=== PATIENT | female | born 1935 | race Caucasian/White ===

== ENCOUNTER → 2017-07-17 06:55 | Outpatient (REF) | payer MEDICARE, SELFPAY ==
[2017-07-17 10:26] LABS: Anion Gap 7 (5-15); BUN 38 mg/dL (7-18); BUN/Creat Ratio 25.5 RATIO (10-20); Calcium,Total 8.3 mg/dL (8.5-10.1); Chloride 106 mmol/L (98-107); Creatinine, Serum 1.49 mg/dL (0.55-1.02); EST Glomerular Filtration Rate 36 mL/min (>60); Est Glom Filt Rate - Afr Amer 43 mL/min (>60); Glucose 87 mg/dL (70-110); Sodium Level 142 mmol/L (136-145)
[2017-07-17 10:38] LABS: White Blood Count 10.9 K/mm3 (4.4-11.0)
[2017-07-17 10:39] LABS: Hematocrit 34.8 % (37-47); Mean Corp Hgb Conc 31.6 g/gl (32-36); Mean Corpuscular Hgb 31.4 pg (27.0-32.0); Mean Corpuscular Volume 99.4 fL (81-99); Mean Platelet Vol. 11.9 fl (6.2-12.0); Platelet Count 314 K/mm3 (150-450); RBC Distribution Width CV 14.3 % (11.6-14.6); RBC Distribution Width SD 50.5 fl (35.1-43.9); Scan Indicated on CBC? Y/N NO
== END ==
LOC: OLS.WHLEAS 06:55
PROVIDERS: Visit Provider Family Medicine
DX: J44.9 Chronic obstructive pulmonary disease, unspecified (principal); E78.5 Hyperlipidemia, unspecified; E03.9 Hypothyroidism, unspecified
CPT/HCPCS: 36415; 80048; 85027

== ENCOUNTER → 2017-09-05 06:40 | Outpatient (REF) | payer MEDICARE, SELFPAY ==
[2017-09-05 09:00] LABS: Hematocrit 35.5 % (37-47); Hemoglobin 10.9 g/dl (12.0-15.0); Mean Corp Hgb Conc 30.7 g/gl (32-36); Mean Corpuscular Hgb 30.6 pg (27.0-32.0); Mean Corpuscular Volume 99.7 fL (81-99); Mean Platelet Vol. 11.2 fl (6.2-12.0); Platelet Count 325 K/mm3 (150-450); RBC Distribution Width CV 14.2 % (11.6-14.6); RBC Distribution Width SD 51.5 fl (35.1-43.9); Red Blood Count 3.56 M/mm3 (4.2-5.4); White Blood Count 11.2 K/mm3 (4.4-11.0)
[2017-09-05 09:04] LABS: Scan Indicated on CBC? Y/N NO
[2017-09-05 09:24] LABS: Anion Gap 8 (5-15); BUN 29 mg/dL (7-18); Calcium,Total 8.3 mg/dL (8.5-10.1); Chloride 103 mmol/L (98-107); Creatinine, Serum 1.32 mg/dL (0.55-1.02); EST Glomerular Filtration Rate 41 mL/min (>60); Est Glom Filt Rate - Afr Amer 50 mL/min (>60); Glucose 79 mg/dL (70-110); Sodium Level 140 mmol/L (136-145)
== END ==
LOC: OLS.WHLEAS 06:40
PROVIDERS: Visit Provider Family Medicine
DX: F03.90 Unspecified dementia, unspecified severity, without behavioral disturbance, psychotic disturbance, mood disturbance, and anxiety (principal); I12.9 Hypertensive chronic kidney disease with stage 1 through stage 4 chronic kidney disease, or unspecified chronic kidney disease; N18.2 Chronic kidney disease, stage 2 (mild); E78.5 Hyperlipidemia, unspecified; E03.9 Hypothyroidism, unspecified
CPT/HCPCS: 36415; 80048; 84443; 85027

== ENCOUNTER → 2017-11-02 06:55 | Outpatient (REF) | payer MEDICARE, SELFPAY ==
[2017-11-02 08:57] LABS: Hematocrit 35.4 % (37-47); Hemoglobin 11.1 g/dl (12.0-15.0); Mean Corp Hgb Conc 31.4 g/gl (32-36); Mean Corpuscular Hgb 31.5 pg (27.0-32.0); Mean Corpuscular Volume 100.6 fL (81-99); Mean Platelet Vol. 11.6 fl (6.2-12.0); Platelet Count 294 K/mm3 (150-450); RBC Distribution Width CV 14.6 % (11.6-14.6); RBC Distribution Width SD 52.5 fl (35.1-43.9); Red Blood Count 3.52 M/mm3 (4.2-5.4); White Blood Count 10.8 K/mm3 (4.4-11.0)
[2017-11-02 08:58] LABS: Scan Indicated on CBC? Y/N NO
[2017-11-02 09:13] LABS: Anion Gap 6 (5-15); BUN 26 mg/dL (7-18); BUN/Creat Ratio 19.3 RATIO (10-20); Calcium,Total 8.3 mg/dL (8.5-10.1); Chloride 105 mmol/L (98-107); Creatinine, Serum 1.35 mg/dL (0.55-1.02); EST Glomerular Filtration Rate 40 mL/min (>60); Est Glom Filt Rate - Afr Amer 48 mL/min (>60); Glucose 85 mg/dL (74-106); Potassium 4.6 mmol/L (3.5-5.1); Sodium Level 141 mmol/L (136-145)
== END ==
LOC: OLS.WHLEAS 06:55
PROVIDERS: Visit Provider Family Medicine
DX: I10 Essential (primary) hypertension (principal); E03.9 Hypothyroidism, unspecified; J44.9 Chronic obstructive pulmonary disease, unspecified
CPT/HCPCS: 36415; 80048; 85027

== ENCOUNTER → 2017-11-17 05:00 | Outpatient (REF) | payer MEDICARE, SELFPAY ==
[2017-11-17 09:13] LABS: Hematocrit 36.1 % (37-47); Hemoglobin 11.3 g/dl (12.0-15.0); Mean Corp Hgb Conc 31.3 g/gl (32-36); Mean Corpuscular Hgb 31.7 pg (27.0-32.0); Mean Corpuscular Volume 101.4 fL (81-99); Mean Platelet Vol. 11.4 fl (6.2-12.0); Platelet Count 310 K/mm3 (150-450); RBC Distribution Width CV 14.3 % (11.6-14.6); RBC Distribution Width SD 51.7 fl (35.1-43.9); Red Blood Count 3.56 M/mm3 (4.2-5.4); White Blood Count 10.2 K/mm3 (4.4-11.0)
[2017-11-17 09:14] LABS: Scan Indicated on CBC? Y/N NO
[2017-11-17 09:32] LABS: Anion Gap 6 (5-15); BUN 25 mg/dL (7-18); BUN/Creat Ratio 18.5 RATIO (10-20); Calcium,Total 8.4 mg/dL (8.5-10.1); Chloride 103 mmol/L (98-107); Creatinine, Serum 1.35 mg/dL (0.55-1.02); EST Glomerular Filtration Rate 40 mL/min (>60); Est Glom Filt Rate - Afr Amer 48 mL/min (>60); Glucose 82 mg/dL (74-106); Potassium 4.2 mmol/L (3.5-5.1); Sodium Level 140 mmol/L (136-145)
== END ==
LOC: OLS.WHLEAS 05:00
PROVIDERS: Visit Provider Family Medicine
DX: I10 Essential (primary) hypertension (principal); E78.5 Hyperlipidemia, unspecified; E03.9 Hypothyroidism, unspecified; J44.9 Chronic obstructive pulmonary disease, unspecified
CPT/HCPCS: 36415; 80048; 85027

== ENCOUNTER → 2017-12-13 05:00 | Outpatient (REF) | payer MEDICARE, SELFPAY ==
[2017-12-13 08:44] LABS: Anion Gap 5 (5-15); BUN 27 mg/dL (7-18); BUN/Creat Ratio 20.6 RATIO (10-20); Calcium,Total 8.4 mg/dL (8.5-10.1); Chloride 109 mmol/L (98-107); Creatinine, Serum 1.31 mg/dL (0.55-1.02); EST Glomerular Filtration Rate 41 mL/min (>60); Est Glom Filt Rate - Afr Amer 50 mL/min (>60); Glucose 88 mg/dL (74-106); Potassium 4.6 mmol/L (3.5-5.1); Sodium Level 144 mmol/L (136-145)
[2017-12-13 09:09] LABS: Absolute Lymphocyte Count 3.61 X10^3/ul (0.83-4.51); Absolute Neutrophil Count 4.9 X10^3/uL (2.0-7.7); Basophil# 0.03 X10^3/uL; Basophil% 0.3 % (0-1); Eosinophils% 7.3 % (0-5); Lymphocyte # 3.61 X10^3/ul (4.0); Lymphocyte % 32.9 % (19-41); Mean Corp Hgb Conc 30.6 g/gl (32-36); Mean Corpuscular Hgb 31.4 pg (27.0-32.0); Mean Corpuscular Volume 102.9 fL (81-99); Mean Platelet Vol. 11.8 fl (6.2-12.0); Monocyte# 1.56 X10^3/uL; Monocyte% 14.2 % (0-10); Neutrophil # 4.94 X10^3/uL (2.7-7.7); Neutrophil % 45.1 % (47-70); Platelet Count 284 K/mm3 (150-450); RBC Distribution Width CV 14.8 % (11.6-14.6); RBC Distribution Width SD 54.8 fl (35.1-43.9)
[2017-12-13 09:25] LABS: Differential Indicated SCAN CRITERIA MET; POSITIVE COUNT NO; POSITIVE DIFFERENTIAL YES; POSITIVE MORPHOLOGY NO
== END ==
LOC: OLS.WHLEAS 05:00
PROVIDERS: Visit Provider Family Medicine
DX: I10 Essential (primary) hypertension (principal); E78.5 Hyperlipidemia, unspecified; E03.9 Hypothyroidism, unspecified; F41.9 Anxiety disorder, unspecified; F33.9 Major depressive disorder, recurrent, unspecified; M62.81 Muscle weakness (generalized)
CPT/HCPCS: 36415; 80048; 85025

== ENCOUNTER → 2018-01-15 06:30 | Outpatient (REF) | payer MEDICARE, SELFPAY ==
[2018-01-18 17:00] LABS: White Blood Count 9.9 K/mm3 (4.4-11.0)
[2018-01-18 17:01] LABS: BUN 24 mg/dL (7-18); Creatinine, Serum 1.26 mg/dL (0.55-1.02); EST Glomerular Filtration Rate 43 mL/min (>60); Est Glom Filt Rate - Afr Amer 52 mL/min (>60); Glucose 80 mg/dL (74-106); Hematocrit 37.1 % (37-47); Hemoglobin 11.5 g/dl (12.0-15.0); Mean Corpuscular Hgb 31.4 pg (27.0-32.0); Mean Corpuscular Volume 101.4 fL (81-99); Platelet Count 282 K/mm3 (150-450); RBC Distribution Width CV 13.7 % (11.6-14.6); RBC Distribution Width SD 50.3 fl (35.1-43.9); Red Blood Count 3.66 M/mm3 (4.2-5.4); Scan Indicated on CBC? Y/N NO
[2018-01-18 17:02] LABS: Anion Gap 7 (5-15); Calcium,Total 8.4 mg/dL (8.5-10.1); Chloride 109 mmol/L (98-107); Sodium Level 145 mmol/L (136-145)
== END ==
LOC: OLS.WHLEAS 06:30
PROVIDERS: Visit Provider Family Medicine
DX: I12.9 Hypertensive chronic kidney disease with stage 1 through stage 4 chronic kidney disease, or unspecified chronic kidney disease (principal); N18.2 Chronic kidney disease, stage 2 (mild); E78.5 Hyperlipidemia, unspecified; E03.9 Hypothyroidism, unspecified
CPT/HCPCS: 36415; 80048; 85027

== ENCOUNTER → 2018-02-19 05:00 | Outpatient (REF) | payer MEDICARE, SELFPAY ==
[2018-02-19 09:45] LABS: Absolute Lymphocyte Count 3.48 X10^3/ul (0.83-4.51); Absolute Neutrophil Count 9.1 X10^3/uL (2.0-7.7); Basophil# 0.08 X10^3/uL; Basophil% 0.5 % (0-1); Eosinophil# 0.75 X10^3/uL; Eosinophils% 4.8 % (0-5); Hematocrit 33.6 % (37-47); Hemoglobin 10.7 g/dl (12.0-15.0); Lymphocyte # 3.48 X10^3/ul (4.0); Lymphocyte % 22.1 % (19-41); Mean Corp Hgb Conc 31.8 g/gl (32-36); Mean Corpuscular Volume 97.4 fL (81-99); Mean Platelet Vol. 11.6 fl (6.2-12.0); Neutrophil # 9.13 X10^3/uL (2.7-7.7); Neutrophil % 57.8 % (47-70); Platelet Count 335 K/mm3 (150-450); RBC Distribution Width SD 48.5 fl (35.1-43.9); Red Blood Count 3.45 M/mm3 (4.2-5.4); White Blood Count 15.8 K/mm3 (4.4-11.0)
[2018-02-19 09:47] LABS: POSITIVE COUNT NO; POSITIVE DIFFERENTIAL YES; POSITIVE MORPHOLOGY YES
[2018-02-19 09:48] LABS: Differential Indicated SCAN CRITERIA MET
[2018-02-19 10:03] LABS: Anion Gap 8 (5-15); BUN 18 mg/dL (7-18); BUN/Creat Ratio 13.2 RATIO (10-20); Calcium,Total 8.6 mg/dL (8.5-10.1); Chloride 102 mmol/L (98-107); Creatinine, Serum 1.36 mg/dL (0.55-1.02); EST Glomerular Filtration Rate 40 mL/min (>60); Est Glom Filt Rate - Afr Amer 48 mL/min (>60); Glucose 87 mg/dL (74-106); Sodium Level 142 mmol/L (136-145); Thyroid Stim Hormone (TSH) 1.86 uIU/mL (0.358-3.74)
[2018-02-20 16:08] LABS: Pathologist Review Reviewed
== END ==
LOC: OLS.WHLEAS 05:00
PROVIDERS: Visit Provider Family Medicine
DX: I10 Essential (primary) hypertension (principal); E11.9 Type 2 diabetes mellitus without complications; J44.9 Chronic obstructive pulmonary disease, unspecified; E78.5 Hyperlipidemia, unspecified; E03.9 Hypothyroidism, unspecified; Z79.01 Long term (current) use of anticoagulants
CPT/HCPCS: 36415; 80048; 84443; 85025

== ENCOUNTER → 2018-02-20 05:00 | Outpatient (REF) | payer MEDICARE, SELFPAY ==
[2018-02-20 08:54] LABS: Absolute Lymphocyte Count 3.34 X10^3/ul (0.83-4.51); Absolute Neutrophil Count 7.9 X10^3/uL (2.0-7.7); Basophil# 0.07 X10^3/uL; Basophil% 0.5 % (0-1); Eosinophil# 1.11 X10^3/uL; Eosinophils% 7.5 % (0-5); Hematocrit 33.7 % (37-47); Hemoglobin 10.8 g/dl (12.0-15.0); Lymphocyte # 3.34 X10^3/ul (4.0); Lymphocyte % 22.5 % (19-41); Mean Corpuscular Hgb 31.6 pg (27.0-32.0); Mean Corpuscular Volume 98.5 fL (81-99); Mean Platelet Vol. 11.3 fl (6.2-12.0); Monocyte# 2.24 X10^3/uL; Monocyte% 15.1 % (0-10); Neutrophil # 7.91 X10^3/uL (2.7-7.7); Neutrophil % 53.1 % (47-70); Platelet Count 359 K/mm3 (150-450); RBC Distribution Width CV 14.3 % (11.6-14.6); RBC Distribution Width SD 49.3 fl (35.1-43.9); Red Blood Count 3.42 M/mm3 (4.2-5.4); White Blood Count 14.9 K/mm3 (4.4-11.0)
[2018-02-20 08:57] LABS: Differential Indicated SCAN CRITERIA MET; POSITIVE COUNT NO; POSITIVE DIFFERENTIAL YES; POSITIVE MORPHOLOGY YES
[2018-02-20 09:21] LABS: Platelet Estimate ADEQUATE (ADEQ)
[2018-02-20 09:22] LABS: Hypochromasia 1+; Polychromasia RARE; Target Cells RARE
== END ==
LOC: OLS.WHLEAS 05:00
PROVIDERS: Visit Provider Family Medicine
DX: J40 Bronchitis, not specified as acute or chronic (principal); D72.829 Elevated white blood cell count, unspecified
CPT/HCPCS: 36415; 85025

== ENCOUNTER → 2018-02-26 05:00 | Outpatient (REF) | payer MEDICARE, SELFPAY ==
[2018-02-26 09:24] LABS: Absolute Lymphocyte Count 2.88 X10^3/ul (0.83-4.51); Absolute Neutrophil Count 4.5 X10^3/uL (2.0-7.7); Basophil# 0.04 X10^3/uL; Basophil% 0.4 % (0-1); Eosinophil# 0.75 X10^3/uL; Eosinophils% 8.3 % (0-5); Hematocrit 34.5 % (37-47); Lymphocyte # 2.88 X10^3/ul (4.0); Lymphocyte % 31.8 % (19-41); Mean Corp Hgb Conc 31.9 g/gl (32-36); Mean Corpuscular Hgb 31.3 pg (27.0-32.0); Mean Platelet Vol. 10.9 fl (6.2-12.0); Monocyte# 0.91 X10^3/uL; Neutrophil # 4.46 X10^3/uL (2.7-7.7); Neutrophil % 49.3 % (47-70); Platelet Count 465 K/mm3 (150-450); RBC Distribution Width CV 14.1 % (11.6-14.6); RBC Distribution Width SD 48.1 fl (35.1-43.9); Red Blood Count 3.52 M/mm3 (4.2-5.4); White Blood Count 9.1 K/mm3 (4.4-11.0)
[2018-02-26 09:38] LABS: POSITIVE COUNT NO; POSITIVE DIFFERENTIAL NO; POSITIVE MORPHOLOGY NO
== END ==
LOC: OLS.WHLEAS 05:00
PROVIDERS: Visit Provider Family Medicine
DX: J40 Bronchitis, not specified as acute or chronic (principal); D72.829 Elevated white blood cell count, unspecified; R53.83 Other fatigue
CPT/HCPCS: 36415; 85025

== ENCOUNTER → 2018-03-15 05:00 | Outpatient (REF) | payer MEDICARE, SELFPAY ==
[2018-03-15 08:15] LABS: Hematocrit 33.8 % (37-47); Hemoglobin 10.8 g/dl (12.0-15.0); Mean Corpuscular Hgb 31.8 pg (27.0-32.0); Mean Corpuscular Volume 99.4 fL (81-99); Mean Platelet Vol. 11.5 fl (6.2-12.0); Platelet Count 274 K/mm3 (150-450); RBC Distribution Width CV 14.5 % (11.6-14.6); RBC Distribution Width SD 51.2 fl (35.1-43.9); White Blood Count 13.5 K/mm3 (4.4-11.0)
[2018-03-15 08:18] LABS: Anion Gap 8 (5-15); BUN 15 mg/dL (7-18); Calcium,Total 8.4 mg/dL (8.5-10.1); Chloride 103 mmol/L (98-107); Creatinine, Serum 1.36 mg/dL (0.55-1.02); EST Glomerular Filtration Rate 40 mL/min (>60); Est Glom Filt Rate - Afr Amer 48 mL/min (>60); Glucose 88 mg/dL (74-106); Potassium 3.4 mmol/L (3.5-5.1); Sodium Level 143 mmol/L (136-145)
[2018-03-15 08:33] LABS: Scan Indicated on CBC? Y/N NO
== END ==
LOC: OLS.WHLEAS 05:00
PROVIDERS: Visit Provider Family Medicine
DX: I10 Essential (primary) hypertension (principal); E03.9 Hypothyroidism, unspecified; J44.9 Chronic obstructive pulmonary disease, unspecified; F03.90 Unspecified dementia, unspecified severity, without behavioral disturbance, psychotic disturbance, mood disturbance, and anxiety
CPT/HCPCS: 36415; 80048; 85027

== ENCOUNTER → 2018-03-21 08:30 | Outpatient (REF) | payer MEDICARE, SELFPAY | LOC: OLS.WHLEAS 08:30 | PROVIDERS: Visit Provider Family Medicine | DX: J18.9 Pneumonia, unspecified organism (principal) | CPT/HCPCS: 87449 ==

== ENCOUNTER → 2018-04-26 05:00 | Outpatient (REF) | payer MEDICARE, SELFPAY ==
[2018-04-26 10:28] LABS: Hematocrit 35.1 % (37-47); Mean Corp Hgb Conc 31.3 g/gl (32-36); Mean Corpuscular Hgb 31.5 pg (27.0-32.0); Mean Corpuscular Volume 100.6 fL (81-99); Mean Platelet Vol. 11.5 fl (6.2-12.0); Platelet Count 297 K/mm3 (150-450); RBC Distribution Width CV 15.1 % (11.6-14.6); RBC Distribution Width SD 53.5 fl (35.1-43.9); Red Blood Count 3.49 M/mm3 (4.2-5.4); White Blood Count 10.3 K/mm3 (4.4-11.0)
[2018-04-26 10:31] LABS: Scan Indicated on CBC? Y/N NO
[2018-04-26 10:38] LABS: Anion Gap 7 (5-15); BUN 22 mg/dL (7-18); BUN/Creat Ratio 15.3 RATIO (10-20); Calcium,Total 8.4 mg/dL (8.5-10.1); Chloride 105 mmol/L (98-107); Creatinine, Serum 1.44 mg/dL (0.55-1.02); EST Glomerular Filtration Rate 37 mL/min (>60); Est Glom Filt Rate - Afr Amer 45 mL/min (>60); Glucose 89 mg/dL (74-106); Potassium 4.1 mmol/L (3.5-5.1); Sodium Level 143 mmol/L (136-145)
== END ==
LOC: OLS.WHLEAS 05:00
PROVIDERS: Visit Provider Family Medicine
DX: J44.9 Chronic obstructive pulmonary disease, unspecified (principal); I10 Essential (primary) hypertension
CPT/HCPCS: 36415; 80048; 85027

== ENCOUNTER → 2018-05-16 05:00 | Outpatient (REF) | payer MEDICARE, SELFPAY ==
[2018-05-16 07:29] LABS: Hematocrit 33.7 % (37-47); Hemoglobin 10.8 g/dl (12.0-15.0); Mean Corpuscular Hgb 32.4 pg (27.0-32.0); Mean Corpuscular Volume 101.2 fL (81-99); Mean Platelet Vol. 11.6 fl (6.2-12.0); Platelet Count 287 K/mm3 (150-450); RBC Distribution Width CV 14.5 % (11.6-14.6); RBC Distribution Width SD 52.4 fl (35.1-43.9); Red Blood Count 3.33 M/mm3 (4.2-5.4); White Blood Count 10.9 K/mm3 (4.4-11.0)
[2018-05-16 07:30] LABS: Scan Indicated on CBC? Y/N NO
[2018-05-16 07:44] LABS: Anion Gap 6 (5-15); BUN 19 mg/dL (7-18); Calcium,Total 8.5 mg/dL (8.5-10.1); Chloride 106 mmol/L (98-107); Creatinine, Serum 1.36 mg/dL (0.55-1.02); EST Glomerular Filtration Rate 40 mL/min (>60); Est Glom Filt Rate - Afr Amer 48 mL/min (>60); Glucose 83 mg/dL (74-106); Sodium Level 144 mmol/L (136-145)
== END ==
LOC: OLS.WHLEAS 05:00
PROVIDERS: Visit Provider Family Medicine
DX: E03.9 Hypothyroidism, unspecified (principal); J44.9 Chronic obstructive pulmonary disease, unspecified
CPT/HCPCS: 36415; 80048; 85027

== ENCOUNTER → 2018-06-19 05:00 | Outpatient (REF) | payer MEDICARE, SELFPAY ==
[2018-06-19 08:49] LABS: Hematocrit 36.9 % (37-47); Hemoglobin 11.3 g/dl (12.0-15.0); Mean Corp Hgb Conc 30.6 g/gl (32-36); Mean Corpuscular Hgb 30.5 pg (27.0-32.0); Mean Corpuscular Volume 99.7 fL (81-99); Mean Platelet Vol. 11.3 fl (6.2-12.0); Platelet Count 334 K/mm3 (150-450); RBC Distribution Width SD 50.9 fl (35.1-43.9); White Blood Count 11.3 K/mm3 (4.4-11.0)
[2018-06-19 08:52] LABS: Scan Indicated on CBC? Y/N NO
[2018-06-19 09:09] LABS: Anion Gap 8 (5-15); BUN 24 mg/dL (7-18); BUN/Creat Ratio 16.8 RATIO (10-20); Calcium,Total 8.4 mg/dL (8.5-10.1); Chloride 108 mmol/L (98-107); Creatinine, Serum 1.43 mg/dL (0.55-1.02); EST Glomerular Filtration Rate 37 mL/min (>60); Est Glom Filt Rate - Afr Amer 45 mL/min (>60); Glucose 84 mg/dL (74-106); Potassium 3.9 mmol/L (3.5-5.1); Sodium Level 144 mmol/L (136-145)
== END ==
LOC: OLS.WHLEAS 05:00
PROVIDERS: Visit Provider Family Medicine
DX: I10 Essential (primary) hypertension (principal); E78.5 Hyperlipidemia, unspecified; E03.9 Hypothyroidism, unspecified; F03.90 Unspecified dementia, unspecified severity, without behavioral disturbance, psychotic disturbance, mood disturbance, and anxiety
CPT/HCPCS: 36415; 80048; 85027

== ENCOUNTER → 2018-07-19 06:05 | Outpatient (REF) | payer MEDICARE, SELFPAY ==
[2018-07-19 08:59] LABS: Hematocrit 35.1 % (37-47); Hemoglobin 11.1 g/dl (12.0-15.0); Mean Corp Hgb Conc 31.6 g/gl (32-36); Mean Corpuscular Hgb 31.7 pg (27.0-32.0); Mean Corpuscular Volume 100.3 fL (81-99); Mean Platelet Vol. 11.6 fl (6.2-12.0); Platelet Count 303 K/mm3 (150-450); RBC Distribution Width SD 49.5 fl (35.1-43.9); White Blood Count 13.1 K/mm3 (4.4-11.0)
[2018-07-19 09:03] LABS: Scan Indicated on CBC? Y/N NO
[2018-07-19 09:04] LABS: Anion Gap 7 (5-15); BUN 25 mg/dL (7-18); BUN/Creat Ratio 17.6 RATIO (10-20); Calcium,Total 8.2 mg/dL (8.5-10.1); Chloride 106 mmol/L (98-107); Creatinine, Serum 1.42 mg/dL (0.55-1.02); EST Glomerular Filtration Rate 38 mL/min (>60); Est Glom Filt Rate - Afr Amer 46 mL/min (>60); Glucose 84 mg/dL (74-106); Potassium 3.8 mmol/L (3.5-5.1); Sodium Level 144 mmol/L (136-145)
== END ==
LOC: OLS.WHLEAS 06:05
PROVIDERS: Visit Provider Family Medicine
DX: I10 Essential (primary) hypertension (principal); E03.9 Hypothyroidism, unspecified; F33.9 Major depressive disorder, recurrent, unspecified; F03.90 Unspecified dementia, unspecified severity, without behavioral disturbance, psychotic disturbance, mood disturbance, and anxiety
CPT/HCPCS: 36415; 80048; 85027

== ENCOUNTER → 2018-08-21 05:00 | Outpatient (REF) | payer MEDICARE, SELFPAY ==
[2018-08-21 08:30] LABS: Hematocrit 35.4 % (37-47); Hemoglobin 10.8 g/dl (12.0-15.0); Mean Corp Hgb Conc 30.5 g/gl (32-36); Mean Corpuscular Hgb 30.6 pg (27.0-32.0); Mean Corpuscular Volume 100.3 fL (81-99); Mean Platelet Vol. 11.2 fl (6.2-12.0); Platelet Count 306 K/mm3 (150-450); RBC Distribution Width CV 14.4 % (11.6-14.6); RBC Distribution Width SD 52.6 fl (35.1-43.9); Red Blood Count 3.53 M/mm3 (4.2-5.4); White Blood Count 8.5 K/mm3 (4.4-11.0)
[2018-08-21 08:32] LABS: Scan Indicated on CBC? Y/N NO
[2018-08-21 08:42] LABS: Anion Gap 9 (5-15); BUN 21 mg/dL (7-18); BUN/Creat Ratio 14.8 RATIO (10-20); Calcium,Total 8.4 mg/dL (8.5-10.1); Chloride 106 mmol/L (98-107); Creatinine, Serum 1.42 mg/dL (0.55-1.02); EST Glomerular Filtration Rate 38 mL/min (>60); Est Glom Filt Rate - Afr Amer 46 mL/min (>60); Glucose 83 mg/dL (74-106); Potassium 3.9 mmol/L (3.5-5.1); Sodium Level 144 mmol/L (136-145); Thyroid Stim Hormone (TSH) 2.17 uIU/mL (0.358-3.74)
== END ==
LOC: OLS.WHLEAS 05:00
PROVIDERS: Visit Provider Family Medicine
DX: F03.90 Unspecified dementia, unspecified severity, without behavioral disturbance, psychotic disturbance, mood disturbance, and anxiety (principal); I10 Essential (primary) hypertension; E03.9 Hypothyroidism, unspecified; F33.9 Major depressive disorder, recurrent, unspecified
CPT/HCPCS: 36415; 80048; 84443; 85027

== ENCOUNTER → 2018-09-20 05:36 | Outpatient (REF) | payer MEDICARE, SELFPAY ==
[2018-09-20 07:26] LABS: Anion Gap 9 (5-15); BUN 23 mg/dL (7-18); Calcium,Total 8.3 mg/dL (8.5-10.1); Chloride 107 mmol/L (98-107); Creatinine, Serum 1.35 mg/dL (0.55-1.02); EST Glomerular Filtration Rate 40 mL/min (>60); Est Glom Filt Rate - Afr Amer 48 mL/min (>60); Glucose 84 mg/dL (74-106); Potassium 3.7 mmol/L (3.5-5.1); Sodium Level 143 mmol/L (136-145)
[2018-09-20 07:32] LABS: Hematocrit 34.7 % (37-47); Hemoglobin 10.7 g/dl (12.0-15.0); Mean Corp Hgb Conc 30.8 g/gl (32-36); Mean Corpuscular Hgb 30.8 pg (27.0-32.0); Mean Platelet Vol. 10.9 fl (6.2-12.0); Platelet Count 328 K/mm3 (150-450); RBC Distribution Width CV 14.1 % (11.6-14.6); RBC Distribution Width SD 51.1 fl (35.1-43.9); Red Blood Count 3.47 M/mm3 (4.2-5.4); White Blood Count 13.1 K/mm3 (4.4-11.0)
[2018-09-20 07:41] LABS: Scan Indicated on CBC? Y/N NO
== END ==
LOC: OLS.WHLEAS 05:36
PROVIDERS: Visit Provider Family Medicine
DX: I10 Essential (primary) hypertension (principal); F03.90 Unspecified dementia, unspecified severity, without behavioral disturbance, psychotic disturbance, mood disturbance, and anxiety; E03.9 Hypothyroidism, unspecified; F33.9 Major depressive disorder, recurrent, unspecified
CPT/HCPCS: 36415; 80048; 85027

== ENCOUNTER → 2018-10-18 06:15 | Outpatient (REF) | payer MEDICARE, SELFPAY ==
[2018-10-18 08:39] LABS: Hematocrit 36.2 % (37-47); Mean Corp Hgb Conc 30.4 g/gl (32-36); Mean Corpuscular Hgb 30.8 pg (27.0-32.0); Mean Corpuscular Volume 101.4 fL (81-99); Mean Platelet Vol. 11.9 fl (6.2-12.0); Platelet Count 271 K/mm3 (150-450); RBC Distribution Width CV 14.1 % (11.6-14.6); Red Blood Count 3.57 M/mm3 (4.2-5.4); White Blood Count 6.8 K/mm3 (4.4-11.0)
[2018-10-18 08:42] LABS: Scan Indicated on CBC? Y/N NO
[2018-10-18 09:08] LABS: Anion Gap 6 (5-15); BUN 27 mg/dL (7-18); BUN/Creat Ratio 19.6 RATIO (10-20); Calcium,Total 7.8 mg/dL (8.5-10.1); Chloride 106 mmol/L (98-107); Creatinine, Serum 1.38 mg/dL (0.55-1.02); EST Glomerular Filtration Rate 39 mL/min (>60); Est Glom Filt Rate - Afr Amer 47 mL/min (>60); Glucose 82 mg/dL (74-106); Sodium Level 141 mmol/L (136-145)
== END ==
LOC: OLS.WHLEAS 06:15
PROVIDERS: Visit Provider Family Medicine
DX: E11.9 Type 2 diabetes mellitus without complications (principal); J44.9 Chronic obstructive pulmonary disease, unspecified; F03.90 Unspecified dementia, unspecified severity, without behavioral disturbance, psychotic disturbance, mood disturbance, and anxiety; I10 Essential (primary) hypertension
CPT/HCPCS: 36415; 80048; 85027

== ENCOUNTER → 2018-11-22 05:00 | Outpatient (REF) | payer MEDICARE, SELFPAY ==
[2018-11-22 08:32] LABS: Hematocrit 35.5 % (37-47); Hemoglobin 11.2 g/dl (12.0-15.0); Mean Corp Hgb Conc 31.5 g/gl (32-36); Mean Corpuscular Hgb 30.8 pg (27.0-32.0); Mean Corpuscular Volume 97.5 fL (81-99); Mean Platelet Vol. 11.3 fl (6.2-12.0); Platelet Count 319 K/mm3 (150-450); RBC Distribution Width SD 50.2 fl (35.1-43.9); Red Blood Count 3.64 M/mm3 (4.2-5.4); White Blood Count 11.4 K/mm3 (4.4-11.0)
[2018-11-22 08:44] LABS: Anion Gap 7 (5-15); BUN 24 mg/dL (7-18); BUN/Creat Ratio 17.1 RATIO (10-20); Calcium,Total 8.1 mg/dL (8.5-10.1); Chloride 106 mmol/L (98-107); EST Glomerular Filtration Rate 38 mL/min (>60); Est Glom Filt Rate - Afr Amer 46 mL/min (>60); Glucose 85 mg/dL (74-106); Potassium 3.9 mmol/L (3.5-5.1); Scan Indicated on CBC? Y/N NO; Sodium Level 140 mmol/L (136-145)
== END ==
LOC: OLS.WHLEAS 05:00
PROVIDERS: Visit Provider Family Medicine
DX: J44.9 Chronic obstructive pulmonary disease, unspecified (principal); E03.9 Hypothyroidism, unspecified
CPT/HCPCS: 36415; 80048; 85027

== ENCOUNTER → 2018-12-20 05:00 | Outpatient (REF) | payer MEDICARE, SELFPAY ==
[2018-12-20 07:37] LABS: Hematocrit 35.1 % (37-47); Mean Corp Hgb Conc 31.3 g/gl (32-36); Mean Corpuscular Hgb 30.8 pg (27.0-32.0); Mean Corpuscular Volume 98.3 fL (81-99); Mean Platelet Vol. 11.6 fl (6.2-12.0); Platelet Count 301 K/mm3 (150-450); RBC Distribution Width CV 14.3 % (11.6-14.6); RBC Distribution Width SD 51.3 fl (35.1-43.9); Red Blood Count 3.57 M/mm3 (4.2-5.4); White Blood Count 11.1 K/mm3 (4.4-11.0)
[2018-12-20 07:45] LABS: Scan Indicated on CBC? Y/N NO
[2018-12-20 07:52] LABS: Anion Gap 5 (5-15); BUN 21 mg/dL (7-18); BUN/Creat Ratio 15.9 RATIO (10-20); Calcium,Total 8.1 mg/dL (8.5-10.1); Chloride 108 mmol/L (98-107); Creatinine, Serum 1.32 mg/dL (0.55-1.02); EST Glomerular Filtration Rate 41 mL/min (>60); Est Glom Filt Rate - Afr Amer 50 mL/min (>60); Glucose 84 mg/dL (74-106); Potassium 4.2 mmol/L (3.5-5.1); Sodium Level 141 mmol/L (136-145)
== END ==
LOC: OLS.WHLTCC 05:00
PROVIDERS: Visit Provider Family Medicine
DX: J44.9 Chronic obstructive pulmonary disease, unspecified (principal); I10 Essential (primary) hypertension
CPT/HCPCS: 36415; 80048; 85027

== ENCOUNTER → 2019-01-24 | Outpatient (REF) | payer MEDICARE, SELFPAY ==
[2019-01-24 07:56] LABS: Hematocrit 33.9 % (37-47); Hemoglobin 10.6 g/dl (12.0-15.0); Mean Corp Hgb Conc 31.3 g/gl (32-36); Mean Corpuscular Hgb 30.5 pg (27.0-32.0); Mean Corpuscular Volume 97.4 fL (81-99); Mean Platelet Vol. 12.1 fl (6.2-12.0); Platelet Count 280 K/mm3 (150-450); RBC Distribution Width CV 14.4 % (11.6-14.6); RBC Distribution Width SD 50.9 fl (35.1-43.9); Red Blood Count 3.48 M/mm3 (4.2-5.4); White Blood Count 11.2 K/mm3 (4.4-11.0)
[2019-01-24 08:04] LABS: Anion Gap 3 (5-15); BUN 25 mg/dL (7-18); BUN/Creat Ratio 17.5 RATIO (10-20); Calcium,Total 8.5 mg/dL (8.5-10.1); Chloride 109 mmol/L (98-107); Creatinine, Serum 1.43 mg/dL (0.55-1.02); EST Glomerular Filtration Rate 37 mL/min (>60); Est Glom Filt Rate - Afr Amer 45 mL/min (>60); Glucose 86 mg/dL (74-106); Potassium 3.9 mmol/L (3.5-5.1); Sodium Level 142 mmol/L (136-145)
[2019-01-24 08:06] LABS: Scan Indicated on CBC? Y/N NO
== END | disposition home or self-care (01) ==
LOC: OLS.WHLEAS 05:35
PROVIDERS: Visit Provider Family Medicine
DX: I10 Essential (primary) hypertension (principal); E03.9 Hypothyroidism, unspecified
CPT/HCPCS: 36415; 80048; 85027

== ENCOUNTER → 2019-02-20 05:00 | Outpatient (REF) | payer MEDICARE, SELFPAY ==
[2019-02-20 07:07] LABS: Hematocrit 35.4 % (37-47); Hemoglobin 11.1 g/dl (12.0-15.0); Mean Corp Hgb Conc 31.4 g/gl (32-36); Mean Corpuscular Hgb 30.4 pg (27.0-32.0); Mean Platelet Vol. 12.1 fl (6.2-12.0); Platelet Count 264 K/mm3 (150-450); RBC Distribution Width CV 14.5 % (11.6-14.6); Red Blood Count 3.65 M/mm3 (4.2-5.4); White Blood Count 10.5 K/mm3 (4.4-11.0)
[2019-02-20 07:12] LABS: Scan Indicated on CBC? Y/N NO
[2019-02-20 08:25] LABS: Anion Gap 7 (5-15); BUN 28 mg/dL (7-18); BUN/Creat Ratio 18.5 RATIO (10-20); Calcium,Total 8.3 mg/dL (8.5-10.1); Chloride 106 mmol/L (98-107); Creatinine, Serum 1.51 mg/dL (0.55-1.02); EST Glomerular Filtration Rate 35 mL/min (>60); Est Glom Filt Rate - Afr Amer 42 mL/min (>60); Glucose 81 mg/dL (74-106); Potassium 3.9 mmol/L (3.5-5.1); Sodium Level 144 mmol/L (136-145); Thyroid Stim Hormone (TSH) 2.23 uIU/mL (0.358-3.74)
== END ==
LOC: OLS.WHLEAS 05:00
PROVIDERS: Visit Provider Family Medicine
DX: I11.0 Hypertensive heart disease with heart failure (principal); I50.9 Heart failure, unspecified; E03.9 Hypothyroidism, unspecified
CPT/HCPCS: 36415; 80048; 84443; 85027

== ENCOUNTER → 2019-03-21 05:00 | Outpatient (REF) | payer MEDICARE, SELFPAY ==
[2019-03-21 07:51] LABS: Hematocrit 34.6 % (37-47); Mean Corp Hgb Conc 31.8 g/dL (32-36); Mean Corpuscular Hgb 31.3 pg (27.0-32.0); Mean Corpuscular Volume 98.6 fL (81-99); Mean Platelet Vol. 11.4 fl (6.2-12.0); Platelet Count 302 K/mm3 (150-450); RBC Distribution Width CV 14.5 % (11.6-14.6); RBC Distribution Width SD 52.6 fl (35.1-43.9); Red Blood Count 3.51 M/mm3 (4.2-5.4); White Blood Count 11.5 K/mm3 (4.4-11.0)
[2019-03-21 08:03] LABS: Anion Gap 5 (5-15); BUN 32 mg/dL (7-18); BUN/Creat Ratio 19.3 RATIO (10-20); Calcium,Total 8.4 mg/dL (8.5-10.1); Chloride 107 mmol/L (98-107); Creatinine, Serum 1.66 mg/dL (0.55-1.02); EST Glomerular Filtration Rate 31 mL/min (>60); Est Glom Filt Rate - Afr Amer 38 mL/min (>60); Glucose 93 mg/dL (74-106); Potassium 3.9 mmol/L (3.5-5.1); Sodium Level 141 mmol/L (136-145)
== END ==
LOC: OLS.WHLEAS 05:00
PROVIDERS: Visit Provider Family Medicine
DX: F01.51 Vascular dementia, unspecified severity, with behavioral disturbance (principal); F81.9 Developmental disorder of scholastic skills, unspecified; R13.12 Dysphagia, oropharyngeal phase; I67.9 Cerebrovascular disease, unspecified; I48.0 Paroxysmal atrial fibrillation; J44.9 Chronic obstructive pulmonary disease, unspecified
CPT/HCPCS: 36415; 80048; 85027

== ENCOUNTER → 2019-04-04 13:30 | Outpatient (REF) | payer MEDICARE, SELFPAY ==
[2019-04-06 08:55] LABS: Color, Urine Yellow (Yellow); Glucose, Dipstick Normal (Normal); Ketone-Dipstick Negative (Negative); Leukocyte Esterase-Dipstick 500 /ul (Negative); Nitrite-Dipstick Positive (Negative); Occult Blood-Urine 10 /ul (Negative); Protein-Dipstick Negative (Negative); Urine Bilirubin Dipstick Negative (Negative); Urine Clarity Sl. Cloudy (Clear); Urine Urobilinogen Normal (Normal)
== END ==
LOC: OLS.WHLEAS 13:30
PROVIDERS: Visit Provider Family Medicine
DX: N39.0 Urinary tract infection, site not specified (principal); F01.51 Vascular dementia, unspecified severity, with behavioral disturbance; F81.9 Developmental disorder of scholastic skills, unspecified; R13.12 Dysphagia, oropharyngeal phase; I67.9 Cerebrovascular disease, unspecified; I48.0 Paroxysmal atrial fibrillation
CPT/HCPCS: 81002; 87077; 87086; 87088; 87186

== ENCOUNTER → 2019-04-25 05:00 | Outpatient (REF) | payer MEDICARE, SELFPAY ==
[2019-04-25 07:48] LABS: Hematocrit 34.5 % (37-47); Mean Corp Hgb Conc 31.9 g/dL (32-36); Mean Corpuscular Hgb 31.4 pg (27.0-32.0); Mean Corpuscular Volume 98.6 fL (81-99); Mean Platelet Vol. 11.9 fl (6.2-12.0); Platelet Count 282 K/mm3 (150-450); RBC Distribution Width CV 13.9 % (11.6-14.6); RBC Distribution Width SD 51.1 fl (35.1-43.9); White Blood Count 11.8 K/mm3 (4.4-11.0)
[2019-04-25 08:17] LABS: Anion Gap 6 (5-15); BUN 26 mg/dL (7-18); BUN/Creat Ratio 18.1 RATIO (10-20); Calcium,Total 8.4 mg/dL (8.5-10.1); Chloride 107 mmol/L (98-107); Creatinine, Serum 1.44 mg/dL (0.55-1.02); EST Glomerular Filtration Rate 37 mL/min (>60); Est Glom Filt Rate - Afr Amer 45 mL/min (>60); Glucose 82 mg/dL (74-106); Potassium 3.6 mmol/L (3.5-5.1); Sodium Level 141 mmol/L (136-145)
== END ==
LOC: OLS.WHLEAS 05:00
PROVIDERS: Visit Provider Family Medicine
DX: F01.51 Vascular dementia, unspecified severity, with behavioral disturbance (principal); F81.9 Developmental disorder of scholastic skills, unspecified; R13.12 Dysphagia, oropharyngeal phase; I48.0 Paroxysmal atrial fibrillation; I67.9 Cerebrovascular disease, unspecified; J44.9 Chronic obstructive pulmonary disease, unspecified
CPT/HCPCS: 36415; 80048; 85027

== ENCOUNTER → 2019-05-23 | Outpatient (REF) | payer MEDICARE, SELFPAY ==
[2019-05-23 07:57] LABS: Hematocrit 34.8 % (37-47); Hemoglobin 11.1 g/dL (12.0-15.0); Mean Corp Hgb Conc 31.9 g/dL (32-36); Mean Corpuscular Hgb 31.4 pg (27.0-32.0); Mean Corpuscular Volume 98.3 fL (81-99); Mean Platelet Vol. 11.5 fl (6.2-12.0); Platelet Count 317 K/mm3 (150-450); RBC Distribution Width CV 13.6 % (11.6-14.6); RBC Distribution Width SD 49.9 fl (35.1-43.9); Red Blood Count 3.54 M/mm3 (4.2-5.4); White Blood Count 10.4 K/mm3 (4.4-11.0)
[2019-05-23 08:18] LABS: Anion Gap 6 (5-15); BUN 26 mg/dL (7-18); BUN/Creat Ratio 19.4 RATIO (10-20); Calcium,Total 8.5 mg/dL (8.5-10.1); Chloride 107 mmol/L (98-107); Creatinine, Serum 1.34 mg/dL (0.55-1.02); EST Glomerular Filtration Rate 40 mL/min (>60); Est Glom Filt Rate - Afr Amer 49 mL/min (>60); Glucose 94 mg/dL (74-106); Potassium 3.8 mmol/L (3.5-5.1); Sodium Level 143 mmol/L (136-145)
== END | disposition home or self-care (01) ==
LOC: OLS.WHLEAS 05:00
PROVIDERS: Visit Provider Family Medicine
DX: J44.9 Chronic obstructive pulmonary disease, unspecified (principal)
CPT/HCPCS: 36415; 80048; 85027

== ENCOUNTER → 2019-06-27 05:00 | Outpatient (REF) | payer MEDICARE, SELFPAY ==
[2019-06-27 08:14] LABS: Hematocrit 35.8 % (37-47); Hemoglobin 11.2 g/dL (12.0-15.0); Mean Corp Hgb Conc 31.3 g/dL (32-36); Mean Corpuscular Hgb 31.4 pg (27.0-32.0); Mean Corpuscular Volume 100.3 fL (81-99); Mean Platelet Vol. 11.8 fl (6.2-12.0); Platelet Count 296 K/mm3 (150-450); RBC Distribution Width CV 14.4 % (11.6-14.6); RBC Distribution Width SD 53.6 fl (35.1-43.9); Red Blood Count 3.57 M/mm3 (4.2-5.4); White Blood Count 11.1 K/mm3 (4.4-11.0)
[2019-06-27 08:35] LABS: Anion Gap 5 (5-15); BUN 28 mg/dL (7-18); BUN/Creat Ratio 20.7 RATIO (10-20); Calcium,Total 8.4 mg/dL (8.5-10.1); Chloride 106 mmol/L (98-107); Creatinine, Serum 1.35 mg/dL (0.55-1.02); EST Glomerular Filtration Rate 40 mL/min (>60); Est Glom Filt Rate - Afr Amer 48 mL/min (>60); Glucose 95 mg/dL (74-106); Potassium 4.1 mmol/L (3.5-5.1); Sodium Level 140 mmol/L (136-145)
== END ==
LOC: OLS.WHLEAS 05:00
PROVIDERS: Visit Provider Family Medicine
DX: F01.51 Vascular dementia, unspecified severity, with behavioral disturbance (principal); F81.9 Developmental disorder of scholastic skills, unspecified; R13.12 Dysphagia, oropharyngeal phase; I67.9 Cerebrovascular disease, unspecified; I48.0 Paroxysmal atrial fibrillation; J44.9 Chronic obstructive pulmonary disease, unspecified
CPT/HCPCS: 36415; 80048; 85027

== ENCOUNTER → 2019-07-25 05:00 | Outpatient (REF) | payer MEDICARE, SELFPAY ==
[2019-07-25 07:29] LABS: Hematocrit 38.3 % (37-47); Hemoglobin 12.1 g/dL (12.0-15.0); Mean Corp Hgb Conc 31.6 g/dL (32-36); Mean Corpuscular Hgb 31.6 pg (27.0-32.0); Mean Platelet Vol. 11.6 fl (6.2-12.0); Platelet Count 302 K/mm3 (150-450); RBC Distribution Width CV 14.3 % (11.6-14.6); RBC Distribution Width SD 52.7 fl (35.1-43.9); Red Blood Count 3.83 M/mm3 (4.2-5.4); White Blood Count 10.7 K/mm3 (4.4-11.0)
[2019-07-25 07:48] LABS: Anion Gap 3 (5-15); BUN 26 mg/dL (7-18); BUN/Creat Ratio 17.9 RATIO (10-20); Calcium,Total 8.7 mg/dL (8.5-10.1); Chloride 108 mmol/L (98-107); Creatinine, Serum 1.45 mg/dL (0.55-1.02); EST Glomerular Filtration Rate 37 mL/min (>60); Est Glom Filt Rate - Afr Amer 44 mL/min (>60); Glucose 103 mg/dL (74-106); Potassium 4.3 mmol/L (3.5-5.1); Sodium Level 143 mmol/L (136-145)
== END ==
LOC: OLS.WHLEAS 05:00
PROVIDERS: Visit Provider Family Medicine
DX: J44.9 Chronic obstructive pulmonary disease, unspecified (principal); F01.51 Vascular dementia, unspecified severity, with behavioral disturbance; F81.9 Developmental disorder of scholastic skills, unspecified; R13.12 Dysphagia, oropharyngeal phase; I67.9 Cerebrovascular disease, unspecified; I48.0 Paroxysmal atrial fibrillation
CPT/HCPCS: 36415; 80048; 85027

== ENCOUNTER → 2019-08-15 04:00 | Outpatient (REF) | payer MEDICARE, SELFPAY | LOC: OLS.WHLEAS 04:00 | PROVIDERS: Visit Provider Family Medicine | DX: N39.0 Urinary tract infection, site not specified (principal); F01.51 Vascular dementia, unspecified severity, with behavioral disturbance; F81.9 Developmental disorder of scholastic skills, unspecified; R13.12 Dysphagia, oropharyngeal phase; I67.9 Cerebrovascular disease, unspecified; I48.0 Paroxysmal atrial fibrillation | CPT/HCPCS: 87086; 87088; 87186 ==

== ENCOUNTER → 2019-08-22 05:00 | Outpatient (REF) | payer MEDICARE, SELFPAY ==
[2019-08-22 08:03] LABS: Hematocrit 38.5 % (37-47); Hemoglobin 11.9 g/dL (12.0-15.0); Mean Corp Hgb Conc 30.9 g/dL (32-36); Mean Corpuscular Hgb 30.9 pg (27.0-32.0); Platelet Count 286 K/mm3 (150-450); RBC Distribution Width CV 14.1 % (11.6-14.6); RBC Distribution Width SD 52.1 fl (35.1-43.9); Red Blood Count 3.85 M/mm3 (4.2-5.4); White Blood Count 10.9 K/mm3 (4.4-11.0)
[2019-08-22 08:22] LABS: Anion Gap 3 (5-15); BUN 25 mg/dL (7-18); BUN/Creat Ratio 18.4 RATIO (10-20); Calcium,Total 8.6 mg/dL (8.5-10.1); Chloride 107 mmol/L (98-107); Creatinine, Serum 1.36 mg/dL (0.55-1.02); EST Glomerular Filtration Rate 40 mL/min (>60); Est Glom Filt Rate - Afr Amer 48 mL/min (>60); Glucose 94 mg/dL (74-106); Potassium 4.2 mmol/L (3.5-5.1); Sodium Level 141 mmol/L (136-145); Thyroid Stim Hormone (TSH) 3.07 uIU/mL (0.358-3.74)
== END ==
LOC: OLS.WHLEAS 05:00
PROVIDERS: Visit Provider Family Medicine
DX: J44.9 Chronic obstructive pulmonary disease, unspecified (principal); F01.51 Vascular dementia, unspecified severity, with behavioral disturbance; F81.9 Developmental disorder of scholastic skills, unspecified; R13.12 Dysphagia, oropharyngeal phase; I67.9 Cerebrovascular disease, unspecified; I48.0 Paroxysmal atrial fibrillation; E03.9 Hypothyroidism, unspecified
CPT/HCPCS: 36415; 80048; 84443; 85027

== ENCOUNTER 2019-08-26 08:02 | Emergency (ER) | payer MEDICARE, SELFPAY ==
[2019-08-26 08:04] VITALS: BP 170/86; PULSE 65; RESP 15; TEMP 36.8; O2SAT 96
[2019-08-26 08:06] VITALS: BP 170/86; PULSE 65; RESP 16; TEMP 36.8; O2SAT 97
--- NOTE | 2019-08-26 08:30 | CT_ITS ---
STUDY: CT BRAIN WITHOUT CONTRAST REASON FOR EXAM: Female, 84 years old. TRAUMA/LAC RT SIDE/NO LOC. Hx of dementia, TIA, asthma and COPD RADIATION DOSAGE (If Supplied By Facility): CTDIvol = ( 44.99 ) mGy, DLP = ( 779.24 ) mGycm TECHNIQUE: Transaxial CT imaging of the brain was performed without administration of intravenous contrast material. Individualized dose optimization techniques were used for this CT. COMPARISON: Comparison is made with prior examination dated May 15, 2015. FINDINGS: Normal soft tissue structures. Normal calvarium. There is moderate cerebral atrophy with widening of the extra-axial spaces and ventricular dilatation. There are areas of decreased attenuation within the white matter tracts of the supratentorial brain, consistent with microvascular disease changes. Normal basal ganglia and thalami. Normal brainstem. Normal cerebellum. There is no intracranial hemorrhage. There are no findings of an acute ischemic infarction. Atherosclerotic calcification of the cavernous portions of the internal carotid arteries bilaterally. Normal visualized paranasal sinuses. CT/Brain/Head without Contrast IMPRESSION: Chronic involutional changes of the brain. Electronically Signed: Kashmir Levy, at 9:03 EST , Service support ,
--- NOTE | 2019-08-26 08:32 | ED.VIS.FALL ---
History of Present Illness Chief Complaint: Head Injury Informant: Patient, Family, Clubhouse Attendant Occurred: Today - JPTA Mechanism/Context: - - slid out of wheelchair and hit forehead on nearby table Location: face/head Quality of Pain: Aching Current Severity: Moderate Maximum Severity: Moderate Worsened by: palpation Relieved by: leaving alone Associated Symptoms: Amnesia - due to dementia; at baseline level of confusion per family at bedside. Negative for: Loss of consciousness Narrative: Patient denies having any pain anywhere other than her forehead where she has laceration and obvious injury. She does not member what happened. She denies any neck or back pain right now. She is mostly wheelchair-bound and does not stand or ambulate by herself. She transfers with assistance only. Tetanus Immunization: Unknown - Past Medical History (1) Anxiety Status: Chronic (2) Benign essential hypertension Status: Chronic (3) COPD (chronic obstructive pulmonary disease) Status: Chronic (4) Cerebrovascular disease Status: Chronic Comment: microvascular white matter disease periventricular and brainstem (5) Chronic kidney disease Status: Chronic Comment: STAGE 3 (6) Depression Status: Chronic (7) GERD (gastroesophageal reflux disease) Status: Chronic (8) Non-ischemic cardiomyopathy Status: Chronic Comment: EF 10-15% (9) Oropharyngeal and pharyngeal dysphasia Status: Chronic (10) Urinary incontinence Status: Chronic (11) Vascular dementia, uncomplicated Status: Chronic Past Medical History - Allergies and Home Meds Allergies/Adverse Reactions: Allergies clarithromycin [From Biaxin] Allergy (Verified 08/26/19 08:31) Unknown desloratadine [From Clarinex] Allergy (Verified 08/26/19 08:31) Unknown Sulfa (Sulfonamide Antibiotics) Allergy (Verified 08/26/19 08:31) Hives buspirone HCl [From BuSpar] Adverse Reaction (Verified 08/26/19 08:31) eyes hurt EYES HURT cefuroxime Adverse Reaction (Verified 08/26/19 08:31) Unknown diclofenac sodium [From Voltaren] Adverse Reaction (Verified 08/26/19 08:31) bottom sore BOTTOM SORE escitalopram oxalate [From Lexapro] Adverse Reaction (Verified 08/26/19 08:31) Unknown levofloxacin [From Levaquin] Adverse Reaction (Verified 08/26/19 08:31) Unknown tiotropium bromide [From Spiriva with HandiHaler] Adverse Reaction (Verified 08/26/19 08:31) eyes hurt EYES HURT Primary Care Physician: Austin Lares MD [Primary Care Provider] - 5 Days for suture removal (or SNF physician) Surgical History: appendectomy, cholecystectomy, hysterectomy, total knee arthroplasty Lives: Skilled Nursing Smoking Status: Never smoker - Family History Paternal Family History: Reports: - - no heart disease Maternal Family History: Reports: No pertinent history, - - no heart disease Review of Systems ROS: Unable to Obtain - Limited due to dementia/confusion Eyes: Denies: Visual changes - bilaterally, Diplopia ENT: Denies: Bilateral ear pain Cardiovascular: Denies: Chest pain Respiratory: Denies: Dyspnea Gastrointestinal: Denies: Abdominal pain Musculoskeletal: Denies: Neck pain, Back pain, Extremity Pain Skin: Reports: Wounds Neurological: Reports: Headache. Denies: Weakness, Numbness Physical Exam Vital Signs/Narrative: Vital Signs Temp Pulse Resp BP Pulse Ox 08/26/19 08:06 98.2 F 65 16 170/86 H 97 08/26/19 08:04 98.2 F 65 15 170/86 H 96 Inital Vital Signs reviewed: Yes General: Well nourished, Well developed Head: Normocephalic, Trauma - With tenderness right forehead involving 2 lacerations and an abrasion at the zygomatic arch Eyes: Perrl, EOMI - Without pain or entrapment however exam somewhat limited due to patient's difficulty following directions. No sign of globe trauma. ENT: TM's clear, No hemotympanum or drainage, - - Right forehead contusion/hematoma, no crepitance or depression. Midface stable and nontender including zygomatic arches, maxilla, nose Neck: Nontender, Full ROM. Negative for: Spinal Tenderness Cardiovascular: Regular rate, Regular rhythm, No murmurs Respiratory: No distress, CTA bilaterally, Chest nontender Abdomen: Soft, Nontender, Nondistended, Normal bowel sounds Back: Nontender Extremeties: Full range of motion throughout all 4 extremities within the limits of the exam, patient has difficulty even bending her knee when asked to due to confusion but is moving all 4 extremities equally and no pain with attempted passive range of motion. Skin: Normal color, Trauma - 4 cm full-thickness laceration, jagged/irregular, right forehead. Parallel nearby 1 cm V-shaped laceration, similarly clean, full-thickness. Neurological: Alert, Cranial nerves II-XII grossly intact, Normal Strength, Normal Sensation, Confused, Disoriented Psychological: Normal affect, Normal Mood Diagnostic/Tx/Re-eval Clinical Impression(s) from Imaging Studies Brain CT 08/26/19 08:30 IMPRESSION: Chronic involutional changes of the brain. Electronically Signed: Kashmir Levy, at 9:03 EST , Service support , - Medical Decision Making Laceration was cleansed and repaired. Patient has no sign of intracranial bleed or fracture. She will be transferred back to correction, she was given Tylenol for her headache and improved and remained stable throughout her 3+ hour visit in the ER. Procedures - Lacerations Right forehead Length: 5 cm Depth: Sub Q Shape: Stellate Prep: Sterile Conditions, Chlorhexadine Laceration Repair: Lidocaine with epi - 6cc, Local Irrigated (ml): 60 Number of Sutures/[place]: 9 Suture Information: Ethilon, Simple, Horizontal, 6-0 Comment: Good hemostasis and skin edge apposition obtained ED Disposition - Plan for ED Patient: Disposition: Home or Assisted Living Diagnosis: Closed head injury without loss of consciousness, Facial laceration, Fall from wheelchair Instructions: HEAD INJURY, No Wake-Up (Adult), LACERATION, Face (Suture or Tape) Referrals: Austin Lares MD [Primary Care Provider] - 5 Days for suture removal (or SNF physician)
[2019-08-26] MEDS: Acetaminophen 325 MG Tablet 650 MG PO (09:02)
[2019-08-26 11:23] VITALS: BP 130/76; PULSE 74; RESP 18; O2SAT 99
== END 2019-08-26 11:55 | disposition home or self-care (01) ==
PROVIDERS: Emergency Provider Emergency Medicine; Family Provider Family Medicine; PCP Family Medicine
DX: S01.81XA Laceration without foreign body of other part of head, initial encounter (principal); W05.0XXA Fall from non-moving wheelchair, initial encounter; F01.50 Vascular dementia, unspecified severity, without behavioral disturbance, psychotic disturbance, mood disturbance, and anxiety; F41.9 Anxiety disorder, unspecified; J44.9 Chronic obstructive pulmonary disease, unspecified; I12.9 Hypertensive chronic kidney disease with stage 1 through stage 4 chronic kidney disease, or unspecified chronic kidney disease; N18.9 Chronic kidney disease, unspecified; F32.9 Major depressive disorder, single episode, unspecified; K21.9 Gastro-esophageal reflux disease without esophagitis; Z79.899 Other long term (current) drug therapy; Z99.3 Dependence on wheelchair; Y93.89 Activity, other specified; Y92.129 Unspecified place in nursing home as the place of occurrence of the external cause; Y99.8 Other external cause status
CPT/HCPCS: 12013; 70450; 99285

== ENCOUNTER → 2019-10-09 05:00 | Outpatient (REF) | payer MEDICARE, MEDICAID, SELFPAY ==
[2019-10-09 08:36] LABS: Absolute Lymphocyte Count 2.59 X10^3/uL (0.83-4.51); Absolute Neutrophil Count 5.7 X10^3/uL (2.0-7.7); Basophil# 0.03 X10^3/uL; Basophil% 0.3 % (0-1); Eosinophil# 0.94 X10^3/uL; Eosinophils% 9.1 % (0-5); Hematocrit 39.9 % (37-47); Hemoglobin 12.2 g/dL (12.0-15.0); Lymphocyte # 2.59 X10^3/ul (4.0); Lymphocyte % 25.1 % (19-41); Mean Corp Hgb Conc 30.6 g/dL (32-36); Mean Corpuscular Hgb 31.3 pg (27.0-32.0); Mean Corpuscular Volume 102.3 fL (81-99); Mean Platelet Vol. 11.7 fl (6.2-12.0); Monocyte# 1.06 X10^3/uL; Monocyte% 10.3 % (0-10); NRBC Flagged by Analyzer 0 % (0-5); Neutrophil # 5.69 X10^3/uL (2.7-7.7); Platelet Count 325 K/mm3 (150-450); RBC Distribution Width CV 13.8 % (11.6-14.6); RBC Distribution Width SD 52.4 fl (35.1-43.9); White Blood Count 10.3 K/mm3 (4.4-11.0)
[2019-10-09 08:59] LABS: Anion Gap 4 (5-15); BUN 26 mg/dL (7-18); Calcium,Total 8.8 mg/dL (8.5-10.1); Chloride 109 mmol/L (98-107); Creatinine, Serum 1.37 mg/dL (0.55-1.02); EST Glomerular Filtration Rate 39 mL/min (>60); Est Glom Filt Rate - Afr Amer 47 mL/min (>60); Glucose 94 mg/dL (74-106); Sodium Level 143 mmol/L (136-145); Thyroid Stim Hormone (TSH) 2.82 uIU/mL (0.358-3.74)
== END ==
LOC: OLS.WHLEAS 05:00
PROVIDERS: PCP Family Medicine; Visit Provider Family Medicine
DX: E03.9 Hypothyroidism, unspecified (principal); F01.51 Vascular dementia, unspecified severity, with behavioral disturbance; F81.9 Developmental disorder of scholastic skills, unspecified; R13.12 Dysphagia, oropharyngeal phase; I67.9 Cerebrovascular disease, unspecified; I48.0 Paroxysmal atrial fibrillation
CPT/HCPCS: 36415; 80048; 84443; 85025

== ENCOUNTER → 2019-10-14 10:00 | Outpatient (REF) | payer MEDICARE, MEDICAID, SELFPAY ==
[2019-10-15 10:03] LABS: Color, Urine Yellow (Yellow); Glucose, Dipstick Normal (Normal); Ketone-Dipstick Negative (Negative); Leukocyte Esterase-Dipstick 500 /ul (Negative); Nitrite-Dipstick Positive (Negative); Occult Blood-Urine Negative /ul (Negative); Protein-Dipstick Negative (Negative); Urine Bilirubin Dipstick Negative (Negative); Urine Clarity Sl. Cloudy (Clear); Urine Urobilinogen Normal (Normal); Urine pH 6.5 (5.0 - 8.0)
== END ==
LOC: OLS.WHLEAS 10:00
PROVIDERS: PCP Family Medicine; Visit Provider Family Medicine
DX: N39.0 Urinary tract infection, site not specified (principal); F01.51 Vascular dementia, unspecified severity, with behavioral disturbance; F81.9 Developmental disorder of scholastic skills, unspecified; R13.12 Dysphagia, oropharyngeal phase; I67.9 Cerebrovascular disease, unspecified; I48.0 Paroxysmal atrial fibrillation
CPT/HCPCS: 81002; 87077; 87086; 87088; 87186

== ENCOUNTER → 2020-02-20 05:00 | Outpatient (REF) | payer MEDICARE, MEDICAID, SELFPAY ==
[2020-02-20 07:38] LABS: Hematocrit 38.1 % (37-47); Mean Corp Hgb Conc 31.5 g/dL (32-36); Mean Corpuscular Hgb 32.2 pg (27.0-32.0); Mean Corpuscular Volume 102.1 fL (81-99); Mean Platelet Vol. 11.8 fl (6.2-12.0); Platelet Count 281 K/mm3 (150-450); RBC Distribution Width CV 13.4 % (11.6-14.6); Red Blood Count 3.73 M/mm3 (4.2-5.4); White Blood Count 10.8 K/mm3 (4.4-11.0)
[2020-02-20 07:54] LABS: Anion Gap 5 (5-15); BUN 19 mg/dL (7-18); BUN/Creat Ratio 16.4 RATIO (10-20); Calcium,Total 8.3 mg/dL (8.5-10.1); Chloride 107 mmol/L (98-107); Creatinine, Serum 1.16 mg/dL (0.55-1.02); EST Glomerular Filtration Rate 47 mL/min (>60); Est Glom Filt Rate - Afr Amer 57 mL/min (>60); Glucose 92 mg/dL (74-106); Potassium 3.6 mmol/L (3.5-5.1); Sodium Level 143 mmol/L (136-145); Thyroid Stim Hormone (TSH) 2.78 uIU/mL (0.358-3.74)
== END ==
LOC: OLS.WHLEAS 05:00
PROVIDERS: PCP Family Medicine; Visit Provider Family Medicine
DX: J44.9 Chronic obstructive pulmonary disease, unspecified (principal); F01.51 Vascular dementia, unspecified severity, with behavioral disturbance; F81.9 Developmental disorder of scholastic skills, unspecified; R13.12 Dysphagia, oropharyngeal phase; I67.9 Cerebrovascular disease, unspecified; I48.0 Paroxysmal atrial fibrillation
CPT/HCPCS: 36415; 80048; 84443; 85027

== ENCOUNTER → 2020-05-21 05:00 | Outpatient (REF) | payer MEDICARE, MEDICAID, SELFPAY ==
[2020-05-21 07:45] LABS: Hematocrit 39.8 % (37-47); Hemoglobin 12.2 g/dL (12.0-15.0); Mean Corp Hgb Conc 30.7 g/dL (32-36); Mean Corpuscular Hgb 31.9 pg (27.0-32.0); Mean Corpuscular Volume 104.2 fL (81-99); Mean Platelet Vol. 12.2 fl (6.2-12.0); Platelet Count 274 K/mm3 (150-450); RBC Distribution Width CV 13.8 % (11.6-14.6); RBC Distribution Width SD 53.1 fl (35.1-43.9); Red Blood Count 3.82 M/mm3 (4.2-5.4); White Blood Count 10.1 K/mm3 (4.4-11.0)
[2020-05-21 08:05] LABS: Anion Gap 6 (5-15); BUN 20 mg/dL (7-18); BUN/Creat Ratio 16.1 RATIO (10-20); Calcium,Total 8.5 mg/dL (8.5-10.1); Chloride 108 mmol/L (98-107); Creatinine, Serum 1.24 mg/dL (0.55-1.02); EST Glomerular Filtration Rate 44 mL/min (>60); Est Glom Filt Rate - Afr Amer 53 mL/min (>60); Glucose 80 mg/dL (74-106); Potassium 3.8 mmol/L (3.5-5.1); Sodium Level 144 mmol/L (136-145)
== END ==
LOC: OLS.WHLEAS 05:00
PROVIDERS: PCP Family Medicine; Referring Provider Family Medicine; Visit Provider Family Medicine
DX: F01.51 Vascular dementia, unspecified severity, with behavioral disturbance (principal); F81.9 Developmental disorder of scholastic skills, unspecified; R13.12 Dysphagia, oropharyngeal phase; I67.9 Cerebrovascular disease, unspecified; I48.0 Paroxysmal atrial fibrillation; J44.9 Chronic obstructive pulmonary disease, unspecified
CPT/HCPCS: 36415; 80048; 85027

== ENCOUNTER → 2020-07-26 04:00 | Outpatient (REF) | payer MEDICARE, MEDICAID, SELFPAY ==
[2020-07-26 10:24] LABS: Color, Urine Yellow (Yellow); Glucose, Dipstick Normal (Normal); Ketone-Dipstick 5 mg/dl (Negative); Leukocyte Esterase-Dipstick 500 /ul (Negative); Nitrite-Dipstick Positive (Negative); Occult Blood-Urine 250 /ul (Negative); Protein-Dipstick 30 mg/dl (Negative); Urine Bilirubin Dipstick Negative (Negative); Urine Clarity Sl. Cloudy (Clear); Urine Urobilinogen Normal (Normal)
[2020-07-30 13:06] VITALS: BMI 28.4
== END ==
LOC: OLS.WHLEAS 04:00
PROVIDERS: PCP Family Medicine; Referring Provider Family Medicine; Visit Provider Family Medicine
DX: U07.1 COVID-19 (principal); R27.8 Other lack of coordination; J44.9 Chronic obstructive pulmonary disease, unspecified; M62.81 Muscle weakness (generalized); R26.2 Difficulty in walking, not elsewhere classified; R48.8 Other symbolic dysfunctions; Z79.899 Other long term (current) drug therapy
CPT/HCPCS: 81002; 87077; 87086; 87088; 87186

== ENCOUNTER 2020-07-30 09:39 | Inpatient (IN) | payer MEDICARE, MEDICAID, SELFPAY ==
[2020-07-30] VITALS (20 sets, daily range): BP systolic 51–109; BP diastolic 29–66; PULSE 57–78; RESP 16–24; TEMP 36.1–36.6; O2SAT 89–100; BMI 30.4; BMI 28.4
--- NOTE | 2020-07-30 09:58 | EKG12_ITS ---
Test Reason : DYSRHYTHMIA Blood Pressure : / mmHG Vent. Rate : 072 BPM Atrial Rate : 072 BPM P-R Int : 152 ms QRS Dur : 090 ms QT Int : 430 ms P-R-T Axes : 031 -03 -15 degrees QTc Int : 470 ms Normal sinus rhythm Nonspecific ST and T wave abnormality Abnormal ECG Confirmed by MARCIA SALAZAR, CATIE ([id number]), editor producer PAM LI ([id number]) on 08/05/2020 10:21:01 AM Referred By: MORENITA Confirmed By:JOSIAH KENNEDY MD
[2020-07-30] MEDS: 0.9% Normal Saline 1,000 ML 999 ML IV ×4 (10:12→14:50)
[2020-07-30] MEDS: Haloperidol Lactate 5 MG/ML Vial IV ×3 (10:12→11:56)
[2020-07-30 10:16] LABS: Absolute Lymphocyte Count 2.62 X10^3/uL (0.83-4.51); Absolute Neutrophil Count 12.3 X10^3/uL (2.0-7.7); Basophil# 0.03 X10^3/uL; Basophil% 0.2 % (0-1); Eosinophil# 0.32 X10^3/uL; Eosinophils% 1.8 % (0-5); Hematocrit 47.4 % (37-47); Hemoglobin 14.6 g/dL (12.0-15.0); Lymphocyte # 2.62 X10^3/ul (4.0); Mean Corp Hgb Conc 30.8 g/dL (32-36); Mean Corpuscular Hgb 31.9 pg (27.0-32.0); Mean Corpuscular Volume 103.5 fL (81-99); Mean Platelet Vol. 13.7 fl (6.2-12.0); NRBC Flagged by Analyzer 0.2 % (0-5); Neutrophil # 12.32 X10^3/uL (2.7-7.7); Neutrophil % 70.4 % (47-70); POSITIVE DIFFERENTIAL YES; Platelet Count 295 K/mm3 (150-450); RBC Distribution Width CV 14.6 % (11.6-14.6); RBC Distribution Width SD 55.9 fl (35.1-43.9); Red Blood Count 4.58 M/mm3 (4.2-5.4); White Blood Count 17.5 K/mm3 (4.4-11.0)
[2020-07-30 10:19] LABS: Differential Indicated SCAN CRITERIA MET; International Normalized Ratio 1.5; Prothrombin Time (Protime)PT. 17.3 SECONDS (11.7-14.9)
[2020-07-30 10:20] LABS: Partial Thromboplast Time 31.1 Seconds (24.1-36.2)
--- NOTE | 2020-07-30 10:20 | ED.DCSUM_ITS ---
History of Present Illness Chief Complaint: Alt LOC Informant: Instrument Engineer, [facility] Narrative: 85-year-old female presenting from alf with a chief complaint of altered mental status. She is currently been receiving treatment for UTI and is Covid positive. Urine culture that was submitted on 26 July showed E. coli. Reviewed the sensitivities. She received a dose of Rocephin 1 g IM yesterday. I read the nurse's notes and beginning the night. That she had some agitation during the night. This appears to be increasing until her ED visit today. She was noted to be 88% on room air. She is on oxygen during the night with nasal cannula 2 L. No fever per nursing. Patient cannot provide me any details. I see that she is on Xarelto. It has been reported to me that her positive Covid test was 15 days ago. Patient is a DNR [facility] arrest - Past Medical History (1) Anxiety Status: Chronic (2) Benign essential hypertension Status: Chronic (3) COPD (chronic obstructive pulmonary disease) Status: Chronic (4) Chronic kidney disease Status: Chronic Comment: STAGE 3 (5) Dementia Status: Chronic (6) Depression Status: Chronic (7) GERD (gastroesophageal reflux disease) Status: Chronic (8) Non-ischemic cardiomyopathy Status: Chronic Comment: EF 10-15% (9) Oropharyngeal and pharyngeal dysphasia Status: Chronic (10) Urinary incontinence Status: Chronic Past Medical History - Allergies and Home Meds Allergies/Adverse Reactions: Allergies clarithromycin [From Biaxin] Allergy (Verified 07/30/20 09:47) Unknown desloratadine [From Clarinex] Allergy (Verified 07/30/20 09:47) Unknown Sulfa (Sulfonamide Antibiotics) Allergy (Verified 07/30/20 09:47) Hives buspirone HCl [From BuSpar] Adverse Reaction (Verified 07/30/20 09:47) eyes hurt EYES HURT cefuroxime Adverse Reaction (Verified 07/30/20 09:47) Unknown diclofenac sodium [From Voltaren] Adverse Reaction (Verified 07/30/20 09:47) bottom sore BOTTOM SORE escitalopram oxalate [From Lexapro] Adverse Reaction (Verified 07/30/20 09:47) Unknown levofloxacin [From Levaquin] Adverse Reaction (Verified 07/30/20 09:47) Unknown tiotropium bromide [From Spiriva with HandiHaler] Adverse Reaction (Verified 07/30/20 09:47) eyes hurt EYES HURT Prior records reviewed: Yes Surgical History: appendectomy, cholecystectomy, hysterectomy, total knee arthroplasty Smoking Status: Unknown if ever smoked Alcohol: None Drugs: None - Family History Paternal Family History: Reports: - - no heart disease Maternal Family History: Reports: No pertinent history, - - no heart disease Review of Systems ROS: Unable to Obtain Physical Exam Vital Signs/Narrative: Vital Signs Temp Pulse Resp BP Pulse Ox 07/30/20 09:58 97.4 F L 92 07/30/20 09:45 97.1 F L 69 20 H 102/66 89 07/30/20 09:41 97.1 F L 69 20 H 89 Inital Vital Signs reviewed: Yes General: Well nourished, Well developed, Obese, No Acute Distress Head: Normocephalic, Atraumatic Eyes: Perrl, EOMI ENT: No rhinorrhea, Dry mucous membranes Neck: Supple, Nontender Cardiovascular: Regular rate, Regular rhythm, No murmurs Respiratory: No distress, CTA bilaterally, Chest nontender Abdomen: Soft, Nontender, Nondistended, Normal bowel sounds Back: Nontender, Normal Inspection Extremities: Nontender, No edema Skin: Normal color, No rash Neurological: Stupor, - - Patient moves all extremities x4. Psychological: - - Patient is not redirectable. She moans and flails her arms. Diagnostic/Tx/Re-eval Clinical Impression(s) from Imaging Studies Chest X-Ray 07/30/20 10:25 IMPRESSION: Focal areas of infiltration in the peripheral distribution involving both lungs as described. Follow-up is recommended. Electronically Signed: Kashmir Levy, at 10:50 EST , Service support , Laboratory Last Values WBC 17.5 K/mm3 (4.4-11.0) H 07/30/20 09:42 RBC 4.58 M/mm3 (4.2-5.4) 07/30/20 09:42 Hgb 14.6 g/dL (12.0-15.0) 07/30/20 09:42 Hct 47.4 % (37-47) H 07/30/20 09:42 MCV 103.5 fL (81-99) H 07/30/20 09:42 MCH 31.9 pg (27.0-32.0) 07/30/20 09:42 MCHC 30.8 g/dL (32-36) L 07/30/20 09:42 RDW Std Deviation 55.9 fl (35.1-43.9) H 07/30/20 09:42 RDW Coeff of Luis 14.6 % (11.6-14.6) 07/30/20 09:42 Plt Count 295 K/mm3 (150-450) 07/30/20 09:42 MPV 13.7 fl (6.2-12.0) H 07/30/20 09:42 Immature Gran % (Auto) 0.600 % (0.0-0.9) 07/30/20 09:42 Neut % (Auto) 70.4 % (47-70) H 07/30/20 09:42 Lymph % (Auto) 15.0 % (19-41) L 07/30/20 09:42 [place] % (Auto) 12.0 % (0-10) H 07/30/20 09:42 Eos % (Auto) 1.8 % (0-5) 07/30/20 09:42 Baso % (Auto) 0.2 % (0-1) 07/30/20 09:42 Absolute Neuts (auto) 12.3 X10^3/uL (2.0-7.7) H 07/30/20 09:42 Absolute Lymphs (auto) 2.62 X10^3/uL (0.83-4.51) 07/30/20 09:42 Nucleated RBC % 0.2 % (0-5) 07/30/20 09:42 Differential Comment COMMENT 07/30/20 09:42 Diff Path Review December07/30/20 09:42 PT 17.3 SECONDS (11.7-14.9) H 07/30/20 09:42 INR 1.5 07/30/20 09:42 APTT 31.1 Seconds (24.1-36.2) 07/30/20 09:42 Sodium 164 mmol/L (136-145) H* 07/30/20 09:42 Potassium 3.6 mmol/L (3.5-5.1) 07/30/20 09:42 Chloride 124 mmol/L (98-107) H 07/30/20 09:42 Carbon Dioxide 30.0 mmol/L (21.0-32.0) 07/30/20 09:42 Anion Gap 10 (5-15) 07/30/20 09:42 BUN 108 mg/dL (7-18) H* 07/30/20 09:42 Creatinine 5.28 mg/dL (0.55-1.02) H 07/30/20 09:42 Estim Creat Clear Calc 7.56 ml/min 07/30/20 09:42 Est GFR (MDRD) Af Amer 10 mL/min (>60) L 07/30/20 09:42 Est GFR (MDRD) Non-Af 8 mL/min (>60) L 07/30/20 09:42 BUN/Creatinine Ratio 20.5 RATIO (10-20) H 07/30/20 09:42 Glucose 120 mg/dL (74-106) H 07/30/20 09:42 Lactic Acid 2.3 mmol/L (0.4-1.9) H* 07/30/20 09:42 Calcium 9.2 mg/dL (8.5-10.1) 07/30/20 09:42 Total Bilirubin 0.80 mg/dL (0.20-1.00) 07/30/20 09:42 AST 70 U/L (15-37) H 07/30/20 09:42 ALT 81 U/L (13-56) H 07/30/20 09:42 Alkaline Phosphatase 239 U/L (45-117) H 07/30/20 09:42 Troponin I 0.124 ng/mL (<0.045) H 07/30/20 09:42 Total Protein 8.8 g/dL (6.4-8.2) H 07/30/20 09:42 Albumin 2.8 g/dL (3.2-5.0) L 07/30/20 09:42 Globulin 6.0 g/dL (2.2-4.2) H 07/30/20 09:42 Albumin/Globulin Ratio 0.5 RATIO (0.9-2.4) L 07/30/20 09:42 - EKG Initial EKG Interpretation: Sinus Rhythm - EKG demonstrates a normal sinus rhythm at a rate of 72. It appears grossly unchanged from EKG dated 16 Dec 2016 - Medical Decision Making Patient started to receive IV fluids. She is very agitated in the bed attempting to remove support lines. Therefore I gave her 0.5 mg IV Haldol x1. We waited 30 minutes no change and I gave her a second dose and we achieved adequate sedation where she was no longer agitated. He does not she is significantly uremic and hypernatremic. We gave ahead and Rocephin for her urinary tract infection. I interpretation of the single view chest x-ray is infiltrates in multiple lobes consistent with COVID-19 infection. We know that she is recovering from Covid and is outside the window of active disease. I think this is most likely a chest x-ray lagging behind. Her last blood pressure reading was 84/57. However she still receiving IV fluids and I think that should be the mainstay of treatment however I feel we must be prudent in her delivery of the IV fluids so as not to drop her sodium levels too quickly. Family was updated at the bedside. - Critical Care Time Critical care time (excluding procedures): 30-74 minutes - 35 min ED Disposition - Plan for ED Patient: Disposition: Acute Care Hospital [facility] Diagnosis: Encephalopathy acute, Hypernatremia, Uremia, Dehydration, Acute renal failure
--- NOTE | 2020-07-30 10:25 | RAD_ITS ---
STUDY: X-RAY CHEST REASON FOR EXAM: Female, 85 years old. +COVID X15 DAYS AGO, increased SOB, altered LOC, being treated for UTI, HX COPD, ASTHMA TECHNIQUE: Single AP portable view of the chest. COMPARISON: Comparison is made with prior study dated 12/16/2016. FINDINGS: EKG electrodes are seen. There now is evidence of a patchy areas of consolidation in the preferential peripheral distribution involving both lungs. There is no demonstrated pleural abnormality. Normal size heart. Normal mediastinum and avi. Normal visualized pulmonary arteries. There is atherosclerotic tortuosity of the aortic arch and descending thoracic aorta. There are diffuse degenerative changes of the visualized thoracic spine. Dextroscoliosis. There is degenerative osteoarthritis of the bilateral shoulders. There is no demonstrated abnormality of the visualized soft tissue structures of the upper abdomen. RAD/Chest 1 View (Portable) IMPRESSION: Focal areas of infiltration in the peripheral distribution involving both lungs as described. Follow-up is recommended. Electronically Signed: Kashmir Levy, at 10:50 EST , Service support ,
[2020-07-30 10:58] LABS: ALB/GLOB Ratio 0.5 RATIO (0.9-2.4); AST(SGOT) 70 U/L (15-37); Alanine Aminotransfer ALT/SGPT 81 U/L (13-56); Albumin, Serum 2.8 g/dL (3.2-5.0); Alkaline Phosphatase 239 U/L (45-117); Anion Gap 10 (5-15); BUN 108 mg/dL (7-18); BUN/Creat Ratio 20.5 RATIO (10-20); Calcium,Total 9.2 mg/dL (8.5-10.1); Chloride 124 mmol/L (98-107); Creatinine, Serum 5.28 mg/dL (0.55-1.02); EST Glomerular Filtration Rate 8 mL/min (>60); Est Glom Filt Rate - Afr Amer 10 mL/min (>60); Estimated Creatinine Clearance 7.56 ml/min; Glucose 120 mg/dL (74-106); Lactic Acid 2.3 mmol/L (0.4-1.9); Potassium 3.6 mmol/L (3.5-5.1); Protein, Total 8.8 g/dL (6.4-8.2); Sodium Level 164 mmol/L (136-145)
--- NOTE | 2020-07-30 11:21 | PCM.HP.STD ---
Problem List (1) Encephalopathy acute Status: Acute (2) Hypernatremia Status: Acute (3) Uremia Status: Acute (4) Dehydration Status: Acute (5) Acute renal failure Status: Acute (6) Urinary incontinence Status: Chronic (7) Dementia Status: Chronic (8) Altered mental status Status: Acute (9) Acute UTI Status: Acute (10) Oropharyngeal and pharyngeal dysphasia Status: Chronic (11) Chronic kidney disease Status: Chronic Comment: STAGE 3 (12) Non-ischemic cardiomyopathy Status: Chronic Comment: EF 10-15% (13) Acute systolic CHF (congestive heart failure) Status: Acute (14) JERRY (acute kidney injury) Status: Acute (15) Acute respiratory failure with hypoxia Status: Acute (16) Benign essential hypertension Status: Chronic (17) Depression Status: Chronic (18) GERD (gastroesophageal reflux disease) Status: Chronic (19) COPD (chronic obstructive pulmonary disease) Status: Chronic Qualifiers: (20) Chronic renal insufficiency Status: Chronic Comment: stage 2 (21) Anxiety Status: Chronic (22) Cerebrovascular disease Status: Chronic Comment: 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 The patient is a 85 year old F with multiple comorbidities as listed above was brought in from correction by EMS for shortness of breath, altered mental status and positive Covid status tested about 2 weeks ago. As per the son, Mr. Jessica Leavitt present in the room said she has been declining gradually over last 2 weeks in the correction after she tested positive and got worse in the last few days. Patient also has cough which is mainly dry, hypoxic 89% on room air in ER, RR 20/min but no fever. Her blood pressure dropped to systolic 80 in EMS. She had 1 L of normal saline bolus, 4 doses of 0.5 mg Haldol IV, Phenergan 6.25 mg in ER. She is confused, agitated and restless, nondirective and history is unobtainable. Chest x-ray was reviewed and shows focal area of infiltration mainly peripherally in lower lungs. EKG sinus rhythm at 72 bpm. QTC 470 ms. Labs done in the ER is consistent with JERRY with uremia, hypernatremia, hyperchloremia, lactic acidosis and leukocytosis with lymphopenia. Patient is DNR CC arrest with no intubation. [] Past Medical History Past Medical History (Chronic Problems): Chronic Problems Urinary incontinence (Chronic) Dementia (Chronic) Oropharyngeal and pharyngeal dysphasia (Chronic) Chronic kidney disease (Chronic) STAGE 3 Non-ischemic cardiomyopathy (Chronic) EF 10-15% Benign essential hypertension (Chronic) Depression (Chronic) GERD (gastroesophageal reflux disease) (Chronic) COPD (chronic obstructive pulmonary disease) (Chronic) Chronic renal insufficiency (Chronic) stage 2 Anxiety (Chronic) Cerebrovascular disease (Chronic) microvascular white matter disease periventricular and brainstem Learning disability (Chronic) Vascular dementia, uncomplicated (Chronic) Sepsis (Chronic) Allergies clarithromycin [From Biaxin] Allergy (Verified 07/30/20 09:47) Unknown desloratadine [From Clarinex] Allergy (Verified 07/30/20 09:47) Unknown Sulfa (Sulfonamide Antibiotics) Allergy (Verified 07/30/20 09:47) Hives buspirone HCl [From BuSpar] Adverse Reaction (Verified 07/30/20 09:47) eyes hurt EYES HURT cefuroxime Adverse Reaction (Verified 07/30/20 09:47) Unknown diclofenac sodium [From Voltaren] Adverse Reaction (Verified 07/30/20 09:47) bottom sore BOTTOM SORE escitalopram oxalate [From Lexapro] Adverse Reaction (Verified 07/30/20 09:47) Unknown levofloxacin [From Levaquin] Adverse Reaction (Verified 07/30/20 09:47) Unknown tiotropium bromide [From Spiriva with HandiHaler] Adverse Reaction (Verified 07/30/20 09:47) eyes hurt EYES HURT Home Medications: Ambulatory Orders Medication Instructions Recorded Losartan Potassium [Cozaar] 50 mg PO DAILY 05/15/15 Levothyroxine [Synthroid] 25 mcg PO DAILY 06/27/15 Ondansetron [Zofran Odt] 8 mg PO Q8H PRN PRN #6 06/27/15 Carvedilol [Coreg (Beta Angélica)] 12.5 mg PO BID tablet 10/18/16 Docusate Sodium [Colace] 100 mg PO BID capsule 10/18/16 Furosemide [Lasix] 40 mg PO DAILY tablet 10/18/16 Bisacodyl [Dulcolax] 5 mg PO DAILY PRN PRN 12/16/16 Ensure Enlive 120 ml PO 4X/DAY liquid 12/18/16 Acetaminophen [Tylenol] 650 mg PO TID 08/26/19 Rivaroxaban [Xarelto] 15 mg PO QHS 08/26/19 Umeclidinium Brm/Vilanterol Tr 1 puff INHALATION DAILY 08/26/19 [Anoro Ellipta 62.5-25 Mcg INH] Vits A,C,E/Lutein/Minerals 1 ea PO DAILY 08/26/19 [Ocuvite with Lutein Tablet] Ceftriaxone Sodium [Ceftriaxone] 1 gm IM DAILY 07/30/20 Mirtazapine [Remeron] 15 mg PO QHS 07/30/20 Surgical History: appendectomy, cholecystectomy, hysterectomy, total knee arthroplasty Psychiatric History: Anxiety, Depression [employer] History: No pertinent [employer] history Smoking Status: Unknown if ever smoked Alcohol: None Drugs: None - *Family History Paternal History Items: - - no heart disease Maternal History Items: No pertinent history, - - no heart disease Review of Systems Unable to obtain accurate/complete ROS d/t: Disoriented, agitation and restless VTE Information - Inpt Only VTE Present on Admission: No VTE Mechan Device Prophylaxis: None VTE Pharm Prophylaxis ordered?: Yes Patient Problems: Active and Suspected Problems Encephalopathy acute (Acute) Hypernatremia (Acute) Uremia (Acute) Dehydration (Acute) Acute renal failure (Acute) - Physical Exam Vitals/I&O's: Vital Signs Temp Pulse Resp BP Pulse Ox 97.4 F L 70 20 H 102/66 92 07/30/20 09:58 07/30/20 10:42 07/30/20 09:45 07/30/20 09:45 07/30/20 09:58 Oxygen Flow Rate (L/min) 3 Oxygen Delivery Method Nasal Cannula Weight: 188 lb 11.451 oz Body Mass Index (BMI) 30.4 General: Confused, Disoriented, Lethargic, Non-Cooperative HEENT: Atraumatic, PERRLA, EOMI, Normocephalic Oral: No Gingival or Mucosal Lesions/ Ulcerations, Dry Mucosa Neck: Supple, No JVD, Negative Carotid Bruits Lungs: Diminished - Air entry diminished bilaterally, Rhonchi - Bilateral coarse crepitations present predominantly lower lobes, Short of Breath Cardiovascular: Regular rate, Regular Rhythm, Normal S1, Normal S2, No murmurs Abdomen: Bowel Sounds Present, Soft, Non Tender, Non-Distended Extremities: No edema, Capillary Refill Less than 3 Seconds Skin: No rashes, No breakdown Musculoskeletal: No Tenderness to Palpation of Joints or Extremities, Arthritic Changes Neurological: Cranial nerves II-XII grossly intact, Deep Tendon Reflexes 2+/4 and Symmetrical Psych/Mental Status: Agitated, Anxious, Restless Laboratory Results 07/30/20 09:42: WBC 17.5 H, RBC 4.58, Hgb 14.6, Hct 47.4 H, MCV 103.5 H, MCH 31.9, MCHC 30.8 L, RDW Std Deviation 55.9 H, RDW Coeff of Luis 14.6, Plt Count 295, MPV 13.7 H, Immature Gran % (Auto) 0.600, Neut % (Auto) 70.4 H, Lymph % (Auto) 15.0 L, [place] % (Auto) 12.0 H, Eos % (Auto) 1.8, Baso % (Auto) 0.2, Absolute Neuts (auto) 12.3 H, Absolute Lymphs (auto) 2.62, Nucleated RBC % 0.2, Differential Comment COMMENT, Diff Path Review December07/30/20 09:42: PT 17.3 H, INR 1.5, APTT 31.1 07/30/20 09:42: Sodium 164 H*, Potassium 3.6, Chloride 124 H, Carbon Dioxide 30.0, Anion Gap 10, BUN 108 H*, Creatinine 5.28 H, Estim Creat Clear Calc 7.56, Est GFR (MDRD) Af Amer 10 L, Est GFR (MDRD) Non-Af 8 L, BUN/Creatinine Ratio 20.5 H, Glucose 120 H, Calcium 9.2, Total Bilirubin 0.80, AST 70 H, ALT 81 H, Alkaline Phosphatase 239 H, Troponin I 0.124 H, Total Protein 8.8 H, Albumin 2.8 L, Globulin 6.0 H, Albumin/Globulin Ratio 0.5 L 07/30/20 09:42: Lactic Acid 2.3 H* Current Medications Sodium Chloride () 1,000 mls @ 150 mls/hr IV .[id number] CARYN Ceftriaxone Sodium (Rocephin) 1 gm in 50 mls @ 100 mls/hr IV X1 ONE Stop: 07/30/20 11:26 Assessment/Plan All Active Problems Encephalopathy acute (Acute) Hypernatremia (Acute) Uremia (Acute) Dehydration (Acute) Acute renal failure (Acute) Altered mental status (Acute) Acute UTI (Acute) Acute systolic CHF (congestive heart failure) (Acute) JERRY (acute kidney injury) (Acute) Acute respiratory failure with hypoxia (Acute) Community acquired pneumonia (Acute) The patient is a 85 year old F with multiple comorbidities as listed above was brought in from correction by EMS for shortness of breath, altered mental status and positive Covid status tested about 2 weeks ago. Chest x-ray was reviewed and shows focal area of infiltration mainly peripherally in lower lungs. EKG sinus rhythm at 72 bpm. QTC 470 ms. Labs done in the ER is consistent with JERRY with uremia, hypernatremia, hyperchloremia, lactic acidosis and leukocytosis with lymphopenia. Patient is DNR CC arrest with no intubation. [] 1. Acute kidney injury predominantly prerenal with CKD stage III along with severe hypernatremia and hyperkalemia: Current BUN/creatinine is 108/5.28. Her last creatinine was 1.24 on May 2020. Patient had 1 L of normal saline bolus in ER. We will continue 1 more liter of normal saline bolus and then 150 mill per hour. Monitor intake and output. Patient has Bond catheter which was dark yellow-colored urine. UA with urine lites and urine culture ordered. If kidney function does not improve, will consult nephrology, and kidney and bladder ultrasound. 2. E coli UTI: It is hard to get history regarding urinary tract symptoms as patient is confused. Urine culture from 07/26 shows E. coli and gram-negative mary sensitive to ceftriaxone. Continue ceftriaxone 1 g IV daily. 3. COVID-19 pneumonia: Chest x-ray is typical of peripheral infiltration, viral pneumonia. ID consult and discussed with Dr. Malloy advised Decadron 6 mg daily. Remdesivir is contraindicated because of acute kidney injury and patient is out of time window of convalescent plasma. 4. Acute encephalopathy, multifactorial mainly metabolic from uremia/acute kidney, possible infectious from UTI and COVID-19 with history of vascular dementia: Orientation cues. We will keep the n.p.o. until patient is awake. Haldol low-dose as needed for severe agitation. Patient also has a history of dysphagia with silent aspiration. 5. COPD 6. Paroxysmal atrial fibrillation: On Xarelto. Hold Xarelto as creatinine clearance is less than 10 mL/min 7. Severe chronic systolic heart failure with ischemic cardiomyopathy, moderate coronary artery disease: EF 10 to 15% with severe focal hypokinesis, mildly dilated LV and mild MR last echo in September 2016. Last echo in October 2016 reported as EF 20 to 25%, nonobstructive coronary artery disease of LAD and RCA. Hold Lasix, Coreg, losartan as patient has JERRY with hypotension. 8. Other multiple comorbidities include hypothyroidism, GERD, anxiety and depression, chronic debility with low functional capacity correction resident. PT and OT. Living will/advanced directive/end of life care: Patient does have living will or advanced directive. After discussion of benefits/risks procedures involved with full code, DNR CC arrest and DNR CC, the patient's son, Mr. Jessica Leavitt opted for DNR-CC Arrest with no intubation. Patient's son does not want artificial life support including intubation, tube feed, ventilator and/chest compression, central venous catheter, vasopressor and DC shock if needed Total time spent in [id number] encounter in discussion of advanced directive 16 minutes. Laboratory Results 07/30/20 09:42: WBC 17.5 H, RBC 4.58, Hgb 14.6, Hct 47.4 H, MCV 103.5 H, MCH 31.9, MCHC 30.8 L, RDW Std Deviation 55.9 H, RDW Coeff of Luis 14.6, Plt Count 295, MPV 13.7 H, Immature Gran % (Auto) 0.600, Neut % (Auto) 70.4 H, Lymph % (Auto) 15.0 L, [place] % (Auto) 12.0 H, Eos % (Auto) 1.8, Baso % (Auto) 0.2, Absolute Neuts (auto) 12.3 H, Absolute Lymphs (auto) 2.62, Nucleated RBC % 0.2, Differential Comment COMMENT, Diff Path Review December07/30/20 09:42: PT 17.3 H, INR 1.5, APTT 31.1 07/30/20 09:42: Sodium 164 H*, Potassium 3.6, Chloride 124 H, Carbon Dioxide 30.0, Anion Gap 10, BUN 108 H*, Creatinine 5.28 H, Estim Creat Clear Calc 7.56, Est GFR (MDRD) Af Amer 10 L, Est GFR (MDRD) Non-Af 8 L, BUN/Creatinine Ratio 20.5 H, Glucose 120 H, Calcium 9.2, Total Bilirubin 0.80, AST 70 H, ALT 81 H, Alkaline Phosphatase 239 H, Troponin I 0.124 H, Total Protein 8.8 H, Albumin 2.8 L, Globulin 6.0 H, Albumin/Globulin Ratio 0.5 L 07/30/20 09:42: Lactic Acid 2.3 H* 07/30/20 12:24: Urine Color Pending, Urine Clarity Pending, Urine pH Pending, Ur Specific [place] Pending, Urine Protein Pending, Urine Glucose (UA) Pending, Urine Ketones Pending, Urine Occult Blood Pending, Urine Nitrite Pending, Urine Bilirubin Pending, Urine Urobilinogen Pending, Ur Leukocyte Esterase Pending, Urine RBC Pending, Urine WBC Pending, Ur Squamous Epith Cells Pending, Urine Bacteria Pending, Urine Mucus Pending 07/30/20 12:24: Urine Color Pending, Urine Clarity Pending, Urine pH Pending, Ur Specific [place] Pending, Urine Protein Pending, Urine Glucose (UA) Pending, Urine Ketones Pending, Urine Occult Blood Pending, Urine Nitrite Pending, Urine Bilirubin Pending, Urine Urobilinogen Pending, Ur Leukocyte Esterase Pending, Urine RBC Pending, Urine WBC Pending, Ur Squamous Epith Cells Pending, Urine Bacteria Pending, Urine Mucus Pending Clinical Impression(s) from Imaging Studies Chest X-Ray 07/30/20 10:25 IMPRESSION: Focal areas of infiltration in the peripheral distribution involving both lungs as described. Follow-up is recommended. Inpatient E&M: 22683 Init Hosp L3 Procedures: 85093 Advncd Care Plan 30 Min
[2020-07-30] MEDS: 0.9% Normal Saline 1,000 ML 150 ML IV ×3 (11:42→23:32)
[2020-07-30] MEDS: proMETHazine 25 MG/ML Syringe 6.25 MG IV (11:51)
[2020-07-30] MEDS: Ceftriaxone 1 GM/50 ML BAG IV (11:55)
[2020-07-30 12:33] LABS: Mucous, Urine 0 SEEN /hpf (<or=2+)
[2020-07-30 12:44] LABS: Color, Urine Yellow (Yellow); Glucose, Dipstick Normal (Normal); Ketone-Dipstick 5 mg/dl (Negative); Leukocyte Esterase-Dipstick 500 /ul (Negative); Nitrite-Dipstick Negative (Negative); Occult Blood-Urine 25 /ul (Negative); Protein-Dipstick 30 mg/dl (Negative); Urine Clarity Sl. Cloudy (Clear); Urine Urobilinogen 1 mg/dl (Normal)
[2020-07-30 12:46] LABS: Urine Bilirubin Dipstick 3 mg/dL (Negative)
[2020-07-30 12:50] LABS: Bacteria 1+ /hpf (None Seen); Red Blood Cells-Urine 0-5 SEEN /hpf (0-5); Squamous Epithelial Cells - UA 0-5 SEEN /hpf (5-10); White Blood Cells 25-50 SEEN /hpf (0-5)
[2020-07-30 13:34] LABS: BNP,B-Type NATRIURETIC PEPTIDE 19.8 pg/mL (0-100); CPK Total, Creatine Kinase 83 U/L (26-192); Fibrinogen 849 mg/dl (203-444)
[2020-07-30 13:47] LABS: D-Dimer Quantitative (DVT/PE) 1.03 FEU/ug/m (0.27-0.49)
[2020-07-30 14:04] LABS: Reflex Lactate? Y
--- NOTE | 2020-07-30 15:00 | NURSING ---
patients two sons and in to see patient. MD and this RN met with family and discussed POC, patients code status and what families wishes are for patient. Family is awaiting other son and daughter to arrive to discuss their plan.
[2020-07-30] MEDS: Heparin Injection (Vial) 5,000 UNIT/ML VIAL 5000 UNIT SC ×2 (15:07→20:39)
[2020-07-30] MEDS: dexAMETHasone 10 MG/ML Vial 6 MG IV (16:01)
--- NOTE | 2020-07-30 21:17 | PCS.PANDOC ---
PANDEMIC DOCUMENTATION INITIATED: Date: 07/30/20 Time: 7627
[2020-07-30 23:04] LABS: Protein, Urine (Random) 73.8 mg/dL (<11.9); Urine Sodium 15 mmol/L (Not Establ.)
[2020-07-30 23:05] LABS: Protein:Creat Ratio 195 mg/g CRE (0-200)
[2020-07-31] VITALS (10 sets, daily range): BP systolic 104–129; BP diastolic 33–92; PULSE 7–70; RESP 15–22; TEMP 36.1–37; O2SAT 96–98
[2020-07-31] MEDS: Morphine 2 MG/ML Syringe IV ×2 (06:35→17:07)
[2020-07-31] MEDS: 0.9% Normal Saline 1,000 ML 150 ML IV (06:35)
[2020-07-31] MEDS: 0.9% Saline Lock 10 ML Syringe IV ×3 (06:35→17:08)
[2020-07-31] MEDS: proCHLORPERazine 10 MG/2 ML Vial 5 MG IV (06:36)
[2020-07-31] MEDS: Haloperidol Lactate 5 MG/ML Vial 2 MG IV (06:36)
[2020-07-31] MEDS: Heparin Injection (Vial) 5,000 UNIT/ML VIAL 5000 UNIT SC ×2 (07:12→15:15)
[2020-07-31 09:07] LABS: ALB/GLOB Ratio 0.5 RATIO (0.9-2.4); AST(SGOT) 37 U/L (15-37); Alanine Aminotransfer ALT/SGPT 52 U/L (13-56); Albumin, Serum 2.1 g/dL (3.2-5.0); Alkaline Phosphatase 181 U/L (45-117); Anion Gap 7 (5-15); BUN 91 mg/dL (7-18); BUN/Creat Ratio 23.8 RATIO (10-20); Calcium,Total 7.7 mg/dL (8.5-10.1); Chloride 138 mmol/L (98-107); Creatinine, Serum 3.82 mg/dL (0.55-1.02); EST Glomerular Filtration Rate 12 mL/min (>60); Est Glom Filt Rate - Afr Amer 15 mL/min (>60); Estimated Creatinine Clearance 10.45 ml/min; Globulin 4.6 g/dL (2.2-4.2); Glucose 116 mg/dL (74-106); Potassium 3.6 mmol/L (3.5-5.1); Protein, Total 6.7 g/dL (6.4-8.2); Sodium Level 167 mmol/L (136-145); Thyroid Stim Hormone (TSH) 0.79 uIU/mL (0.358-3.74)
[2020-07-31] MEDS: dexAMETHasone 10 MG/ML Vial 6 MG IV (09:35)
[2020-07-31] MEDS: Ceftriaxone 1 GM/50 ML BAG IV (09:35)
--- NOTE | 2020-07-31 11:00 | RAD_ITS ---
STUDY: X-RAY CHEST REASON FOR EXAM: Female, 85 years old. [place]. TECHNIQUE: Single AP portable view of the chest. COMPARISON: Comparison is made with prior study dated 07/30/2020. FINDINGS: EKG electrodes are seen. Since prior study, there has been improvement in the patchy infiltrate in the peripheral aspects of both lungs more prominent on the right side. There is no demonstrated pleural abnormality. Normal size heart. Normal mediastinum and avi. Normal visualized pulmonary arteries. There is atherosclerotic tortuosity of the aortic arch and descending thoracic aorta. There are diffuse degenerative changes of the visualized thoracic spine. Mild dextroscoliosis. Normal visualized ribs, clavicles, and shoulders. There is no demonstrated abnormality of the visualized soft tissue structures of the upper abdomen. RAD/Chest 1 View (Portable) IMPRESSION: Since prior study, there has been improved aeration of both lungs. Electronically Signed: Kashmir Levy, at 14:59 EST , Service support ,
[2020-07-31 12:42] LABS: Pathologist Review Reviewed
--- NOTE | 2020-07-31 12:42 | CASEMGMT ---
Social Work DELONTE is a ocean transportation intermediary resident at [facility]. Clinical updates faxed to [facility] and DELONTE spoke with Nichole with update. Phone call placed to pt spouse Hussain and offered support. Hussain stating that oldest son Jessica will be the contact and decision maker and then will provide updates to Hussain. DELONTE spoke with Charge nurse Rhea and informed of 's wishes for son Jessica to be contact. Nursing has been in contact with family regarding hospice consult and family is in the process of making a decision. Pt can return to [facility] any time as deemed appropriate. SW will remain available to assist as needed. JOSE Alicea
--- NOTE | 2020-07-31 13:40 | PCM.PN.HOSP ---
Patient Problems: Active and Suspected Problems Encephalopathy acute (Acute) Hypernatremia (Acute) Uremia (Acute) Dehydration (Acute) Acute renal failure (Acute) Altered mental status (Acute) Acute UTI (Acute) Acute systolic CHF (congestive heart failure) (Acute) JERRY (acute kidney injury) (Acute) Acute respiratory failure with hypoxia (Acute) Community acquired pneumonia (Acute) Reason for Visit: Acute kidney injury, altered mental status and ANURIA Objective: Patient had just total 105 mill urine on 07/30 and today 75 mils. Had total 6.6 L of fluid since admission. Patient still restless, drowsy and lethargic. Opens eyes on repeated verbal command with difficulty. Overnight, blood pressures improved from 80 systolic to 129/92. On 3 L of oxygen. Talk to the sonJessica present in the room Physical exam General: Lethargic, obtunded. Noncommunicative. HEENT: Atraumatic, PERRLA, EOMI, Normocephalic Oral: No Gingival or Mucosal Lesions/ Ulcerations Neck: Supple, No JVD, Negative Carotid Bruits Lungs: Air entry diminished in bilateral lung bases. Occasional right lung base crepitation. Cardiovascular: Regular rate, Regular Rhythm, Normal S1, Normal S2, No murmurs Abdomen: Bowel Sounds Present, Soft, Non Tender, Non-Distended : No renal angle tenderness. No suprapubic tenderness. Extremities: No edema, Capillary Refill Less than 3 Seconds Skin: No rashes, No breakdown Musculoskeletal: No Tenderness to Palpation of Joints or Extremities Neurological: Cranial nerves II-XII grossly intact, Deep Tendon Reflexes 2+/4 and Symmetrical, Neuro grossly intact Psych/Mental Status: Lethargic. Has baseline dementia. Vitals/I&O's: Vital Signs Temp Pulse Resp BP Pulse Ox 97.9 F 63 15 129/92 H 98 07/31/20 09:27 07/31/20 11:10 07/31/20 09:27 07/31/20 09:27 07/31/20 09:27 Oxygen Flow Rate (L/min) 3 Oxygen Delivery Method Nasal Cannula Weight: 177 lb 0.005 oz Body Mass Index (BMI) 28.4 Intake and Output for Last 24 Hours 07/29/20 07/30/20 07/31/20 23:59 23:59 23:59 Intake Total 5252.5 / 5252.5 1355 / 1355 Output Total 105 / 105 75 / 75 Balance 5147.5 / 5147.5 1280 / 1280 Microbiology Past 72 Hours 07/30/20 12:24 Urine, Catheterized Urine Culture - Preliminary Culture exhibits no growth. 07/30/20 12:24 Urine, Random Legionella Antigen - Final 07/30/20 12:24 Urine, Random Streptococcus pneumoniae Antigen (M - Final Laboratory Results 07/30/20 09:42: Diff Path Review Reviewed 07/30/20 09:42: D-Dimer Quant (PE/DVT) 1.03 H* 07/30/20 09:42: Procalcitonin 0.20 H 07/30/20 12:24: Urine Color Cancelled, Urine Clarity Cancelled, Urine pH Cancelled, Ur Specific [place] Cancelled, U Specif Grav (Refrac) Cancelled, Urine Protein Cancelled, Urine Glucose (UA) Cancelled, Urine Ketones Cancelled, Urine Occult Blood Cancelled, Urine Nitrite Cancelled, Urine Bilirubin Cancelled, Urine Urobilinogen Cancelled, Ur Leukocyte Esterase Cancelled, Urine RBC Cancelled, Urine WBC Cancelled, Ur Squamous Epith Cells Cancelled, Ur Transition Epith Cell Cancelled, Ur Renal Epithelial Cell Cancelled, Calcium Oxalate Crystal Cancelled, Uric Acid Crystals Cancelled, Triple Phos Crystals Cancelled, Other Crystals Cancelled, Amorphous Sediment Cancelled, Urine Bacteria Cancelled, Hyaline Casts Cancelled, Fine Granular Casts Cancelled, Coarse Granular Casts Cancelled, Waxy Casts Cancelled, RBC Casts Cancelled, WBC Casts Cancelled, Urine Mucus Cancelled, Urine Trichomonas Cancelled, Urine Yeast Cancelled 07/30/20 12:24: U Random Total Protein 73.8 H, Ur Random Sodium 15, Urine Creatinine 378.00, Protein/Creatinin Ratio 195 07/30/20 23:55: Urine Creatinine 162.00 07/31/20 08:00: WBC Pending, RBC Pending, Hgb Pending, Hct Pending, MCV Pending, MCH Pending, MCHC Pending, RDW Std Deviation Pending, RDW Coeff of Luis Pending, Plt Count Pending, Neut % (Auto) Pending, Absolute Neuts (auto) Pending 07/31/20 08:00: Sodium 167 H*, Potassium 3.6, Chloride 138 H*, Carbon Dioxide 22.0, Anion Gap 7, BUN 91 H, Creatinine 3.82 H, Estim Creat Clear Calc 10.45, Est GFR (MDRD) Af Amer 15 L, Est GFR (MDRD) Non-Af 12 L, BUN/Creatinine Ratio 23.8 H, Glucose 116 H, Calcium 7.7 L, Total Bilirubin 0.40, AST 37, ALT 52, Alkaline Phosphatase 181 H, Total Protein 6.7, Albumin 2.1 L, Globulin 4.6 H, Albumin/Globulin Ratio 0.5 L, TSH 0.79 Current Medications Acetaminophen (Acetaminophen 325 Mg Tablet) 650 mg PO Q6H PRN PRN PRN Reason: Pain Score 1-10/Temp > 100.7 F Albuterol Sulfate (Albuterol Sulfate 8 Gm Inhaler (60 Puffs)) 2.5 puff INHALATION Q2H PRN PRN PRN Reason: Shortness of Breath/Wheezing Dexamethasone Sodium Phosphate (Dexamethasone 10 Mg/Ml Vial) 6 mg IV DAILY [facility] Last Admin: 07/31/20 09:35 Dose: 6 mg Documented by: Heparin Sodium (Porcine) (Heparin Injection (Vial) 5,000 Unit/Ml Vial) 5,000 unit SC Q8 [facility] Last Admin: 07/31/20 07:12 Dose: 5,000 unit Documented by: Ceftriaxone Sodium (Rocephin) 1 gm in 50 mls @ 100 mls/hr IV Q24 [facility] Last Infusion: 07/31/20 10:10 Dose: Infused Documented by: Dextrose/Sodium Chloride () 1,000 mls @ 75 mls/hr IV .[id number] [facility] Levothyroxine Sodium (Levothyroxine 25 Mcg Tablet) 25 mcg PO DAILY [facility] Last Admin: 07/31/20 09:35 Dose: Not Given Documented by: Mirtazapine (Mirtazapine 15 Mg Tablet) 15 mg PO QHS [facility] Last Admin: 07/30/20 20:38 Dose: Not Given Documented by: Morphine Sulfate (Morphine 2 Mg/Ml Syringe) 2 mg IV Q3H PRN PRN PRN Reason: Pain 1-10/SOB/restlessness Last Admin: 07/31/20 06:35 Dose: 2 mg Documented by: Nitroglycerin (Nitroglycerin (Inpatient Use) 0.4 Mg Tab.Subl) 0.4 mg SUBLINGUAL Q5M PRN PRN Reason: CARDIAC/CHEST PAIN Prochlorperazine Edisylate (Prochlorperazine 10 Mg/2 Ml Vial) 5 mg IV Q4H PRN PRN PRN Reason: Breakthrough nausea/vomiting Last Admin: 07/31/20 06:36 Dose: 5 mg Documented by: Promethazine HCl (Promethazine 25 Mg/Ml Syringe) 6.25 mg IV Q6H PRN PRN PRN Reason: AGITATION Senna/Docusate Sodium (Senna/Docusate Sodium 1 Tablet) 2 tablet PO BID PRN PRN PRN Reason: Constipation Sodium Chloride (0.9% Saline Lock 10 Ml Syringe) 10 - 40 ml IV UD PRN PRN Reason: SALINE FLUSH Last Admin: 07/31/20 09:37 Dose: 10 ml Documented by: STROKE Vital Signs/Narrative: Vital Signs Pulse 07/31/20 11:10 63 Medical Necessity - Tobacco Use Smoking Status: Unknown if ever smoked Assessment/Plan All Active Problems Encephalopathy acute (Acute) Hypernatremia (Acute) Uremia (Acute) Dehydration (Acute) Acute renal failure (Acute) Altered mental status (Acute) Acute UTI (Acute) Acute systolic CHF (congestive heart failure) (Acute) JERRY (acute kidney injury) (Acute) Acute respiratory failure with hypoxia (Acute) Community acquired pneumonia (Acute) The patient is a 85 year old F with multiple comorbidities as listed above was brought in from care home by EMS for shortness of breath, altered mental status and positive Covid status tested about 2 weeks ago. Chest x-ray was reviewed and shows focal area of infiltration mainly peripherally in lower lungs. EKG sinus rhythm at 72 bpm. QTC 470 ms. Labs done in the ER is consistent with JERRY with uremia, hypernatremia, hyperchloremia, lactic acidosis and leukocytosis with lymphopenia. On 07/30 evening, family agreed for DNRCC and palliative care consult. 1. Acute kidney injury predominantly prerenal with CKD stage III along with severe hypernatremia and hyperkalemia: Current BUN/creatinine is 108/5.28. Her last creatinine was 1.24 on May 2020. Patient had 1 L of normal saline bolus in ER. We will continue 1 more liter of normal saline bolus and then 150 mill per hour. Monitor intake and output. Patient has Bond catheter which was dark yellow-colored urine. 07/31: Discussed with the [employer] supervisor open pit Dr. Kim. Agreed on changing the IV fluid D5W at 75 mill per hour for 2 L. Monitor intake and output. Patient had total 150 mill urine output since admission, positive fluid balance of about 6.5 L. BUN/creatinine improved but sodium and chloride are high. Urine culture shows no growth. Discontinue ceftriaxone. Kidney and bladder ultrasound ordered. 2. Recent E coli UTI: It is hard to get history regarding urinary tract symptoms as patient is confused. Urine culture from 07/26 shows E. coli and gram-negative mary sensitive to ceftriaxone. Treated. Repeat urine culture shows no growth. 3. COVID-19 pneumonia: Chest x-ray is typical of peripheral infiltration, viral pneumonia. ID consult and discussed with Dr. Malloy advised Decadron 6 mg daily. Remdesivir is contraindicated because of acute kidney injury and patient is out of time window of convalescent plasma. 4. Acute encephalopathy, multifactorial mainly metabolic from uremia/acute kidney, possible infectious from UTI and COVID-19 with history of vascular dementia: Orientation cues. We will keep the n.p.o. until patient is awake. Haldol low-dose as needed for severe agitation. Patient also has a history of dysphagia with silent aspiration. 07/31: Haldol discontinued. Orientation cues. 5. COPD 6. Paroxysmal atrial fibrillation: On Xarelto. Hold Xarelto as creatinine clearance is less than 10 mL/min 7. Severe chronic systolic heart failure with ischemic cardiomyopathy, moderate coronary artery disease: EF 10 to 15% with severe focal hypokinesis, mildly dilated LV and mild MR last echo in September 2016. Last echo in October 2016 reported as EF 20 to 25%, nonobstructive coronary artery disease of LAD and RCA. Hold Lasix, Coreg, losartan as patient has JERRY with hypotension. 07/31: Repeat chest x-ray not officially reported but independently reviewed. Shows hilar congestion with mild patchy consolidation, suboptimal history. Not a candidate for Lasix because of JERRY and hypernatremia. 8. Other multiple comorbidities include hypothyroidism, GERD, anxiety and depression, chronic debility with low functional capacity care home resident. PT and OT. Living will/advanced directive/end of life care: Patient does have living will or advanced directive. After discussion of benefits/risks procedures involved with full code, DNR CC arrest and DNR CC, the patient's son, Mr. Jessica Leavitt and the other son opted for DNRCC. Palliative care consult ordered. Discussed with the watch caser. Patient's son does not want artificial life support including intubation, tube feed, ventilator and/chest compression, central venous catheter, vasopressor and DC shock if needed Total time spent in [id number] encounter in discussion of advanced directive 16 minutes. Microbiology Past 72 Hours 07/30/20 12:24 Urine, Catheterized Urine Culture - Preliminary Culture exhibits no growth. 07/30/20 12:24 Urine, Random Legionella Antigen - Final 07/30/20 12:24 Urine, Random Streptococcus pneumoniae Antigen (M - Final Laboratory Results 07/30/20 09:42: Diff Path Review Reviewed 07/30/20 12:24: Urine Color Cancelled, Urine Clarity Cancelled, Urine pH Cancelled, Ur Specific [place] Cancelled, U Specif Grav (Refrac) Cancelled, Urine Protein Cancelled, Urine Glucose (UA) Cancelled, Urine Ketones Cancelled, Urine Occult Blood Cancelled, Urine Nitrite Cancelled, Urine Bilirubin Cancelled, Urine Urobilinogen Cancelled, Ur Leukocyte Esterase Cancelled, Urine RBC Cancelled, Urine WBC Cancelled, Ur Squamous Epith Cells Cancelled, Ur Transition Epith Cell Cancelled, Ur Renal Epithelial Cell Cancelled, Calcium Oxalate Crystal Cancelled, Uric Acid Crystals Cancelled, Triple Phos Crystals Cancelled, Other Crystals Cancelled, Amorphous Sediment Cancelled, Urine Bacteria Cancelled, Hyaline Casts Cancelled, Fine Granular Casts Cancelled, Coarse Granular Casts Cancelled, Waxy Casts Cancelled, RBC Casts Cancelled, WBC Casts Cancelled, Urine Mucus Cancelled, Urine Trichomonas Cancelled, Urine Yeast Cancelled 07/30/20 12:24: U Random Total Protein 73.8 H, Ur Random Sodium 15, Urine Creatinine 378.00, Protein/Creatinin Ratio 195 07/30/20 23:55: Urine Creatinine 162.00 07/31/20 08:00: WBC Pending, RBC Pending, Hgb Pending, Hct Pending, MCV Pending, MCH Pending, MCHC Pending, RDW Std Deviation Pending, RDW Coeff of Luis Pending, Plt Count Pending, Neut % (Auto) Pending, Absolute Neuts (auto) Pending 07/31/20 08:00: Sodium 167 H*, Potassium 3.6, Chloride 138 H*, Carbon Dioxide 22.0, Anion Gap 7, BUN 91 H, Creatinine 3.82 H, Estim Creat Clear Calc 10.45, Est GFR (MDRD) Af Amer 15 L, Est GFR (MDRD) Non-Af 12 L, BUN/Creatinine Ratio 23.8 H, Glucose 116 H, Calcium 7.7 L, Total Bilirubin 0.40, AST 37, ALT 52, Alkaline Phosphatase 181 H, Total Protein 6.7, Albumin 2.1 L, Globulin 4.6 H, Albumin/Globulin Ratio 0.5 L, TSH 0.79 Clinical Impression(s) from Imaging Studies Chest X-Ray 07/30/20 10:25 IMPRESSION: Focal areas of infiltration in the peripheral distribution involving both lungs as described. Follow-up is recommended. Inpatient E&M: 90817 Subs Hosp L2
[2020-07-31 14:22] LABS: Absolute Lymphocyte Count 1.67 X10^3/uL (0.83-4.51); Absolute Neutrophil Count 14.7 X10^3/uL (2.0-7.7); Basophil# 0.02 X10^3/uL; Basophil% 0.1 % (0-1); Hematocrit 38.9 % (37-47); Hemoglobin 11.6 g/dL (12.0-15.0); Lymphocyte # 1.67 X10^3/ul (4.0); Lymphocyte % 9.5 % (19-41); Mean Corp Hgb Conc 29.8 g/dL (32-36); Mean Corpuscular Hgb 31.9 pg (27.0-32.0); Mean Corpuscular Volume 106.9 fL (81-99); Mean Platelet Vol. 14.5 fl (6.2-12.0); Monocyte# 1.03 X10^3/uL; Monocyte% 5.9 % (0-10); NRBC Flagged by Analyzer 0.1 % (0-5); Neutrophil # 14.66 X10^3/uL (2.7-7.7); Neutrophil % 83.7 % (47-70); POSITIVE MORPHOLOGY YES; Platelet Count 255 K/mm3 (150-450); RBC Distribution Width CV 15.3 % (11.6-14.6); RBC Distribution Width SD 60.4 fl (35.1-43.9); Red Blood Count 3.64 M/mm3 (4.2-5.4); White Blood Count 17.5 K/mm3 (4.4-11.0)
[2020-07-31 14:23] LABS: Differential Indicated SCAN CRITERIA MET
[2020-07-31 14:49] LABS: Platelet Estimate ADEQUATE (ADEQ); Red Cell Morphology NORM C+C NORMAL (NORM C&C)
--- NOTE | 2020-07-31 15:26 | NURSING ---
This nurse faxed paper work to Hospice at this time.
--- NOTE | 2020-07-31 15:48 | PN.ID_ITS ---
Patient Problems: Active and Suspected Problems Encephalopathy acute (Acute) Hypernatremia (Acute) Uremia (Acute) Dehydration (Acute) Acute renal failure (Acute) Altered mental status (Acute) Acute UTI (Acute) Acute systolic CHF (congestive heart failure) (Acute) JERRY (acute kidney injury) (Acute) Acute respiratory failure with hypoxia (Acute) Community acquired pneumonia (Acute) - Physical Exam Vitals/I&O's: Vital Signs Temp Pulse Resp BP Pulse Ox 98.6 F 70 16 123/81 H 97 07/31/20 14:35 07/31/20 14:47 07/31/20 14:35 07/31/20 14:35 07/31/20 14:35 Oxygen Flow Rate (L/min) 2 Oxygen Delivery Method Nasal Cannula Weight: 80.286 kg Body Mass Index (BMI) 28.4 Intake and Output for Last 24 Hours 07/29/20 07/30/20 07/31/20 23:59 23:59 23:59 Intake Total 5252.5 / 5252.5 1698.75 / 1698.75 Output Total 105 / 105 325 / 325 Balance 5147.5 / 5147.5 1373.75 / 1373.75 Microbiology Past 72 Hours 07/30/20 12:24 Urine, Catheterized Urine Culture - Preliminary Culture exhibits no growth. 07/30/20 12:24 Urine, Random Legionella Antigen - Final 07/30/20 12:24 Urine, Random Streptococcus pneumoniae Antigen (M - Final Laboratory Results 07/30/20 09:42: Diff Path Review Reviewed 07/30/20 12:24: Urine Color Cancelled, Urine Clarity Cancelled, Urine pH Cancelled, Ur Specific [place] Cancelled, U Specif Grav (Refrac) Cancelled, Urine Protein Cancelled, Urine Glucose (UA) Cancelled, Urine Ketones Cancelled, Urine Occult Blood Cancelled, Urine Nitrite Cancelled, Urine Bilirubin Cancelled, Urine Urobilinogen Cancelled, Ur Leukocyte Esterase Cancelled, Urine RBC Cancelled, Urine WBC Cancelled, Ur Squamous Epith Cells Cancelled, Ur Transition Epith Cell Cancelled, Ur Renal Epithelial Cell Cancelled, Calcium Oxalate Crystal Cancelled, Uric Acid Crystals Cancelled, Triple Phos Crystals Cancelled, Other Crystals Cancelled, Amorphous Sediment Cancelled, Urine Bacteria Cancelled, Hyaline Casts Cancelled, Fine Granular Casts Cancelled, Coarse Granular Casts Cancelled, Waxy Casts Cancelled, RBC Casts Cancelled, WBC Casts Cancelled, Urine Mucus Cancelled, Urine Trichomonas Cancelled, Urine Yeast Cancelled 07/30/20 12:24: U Random Total Protein 73.8 H, Ur Random Sodium 15, Urine Creatinine 378.00, Protein/Creatinin Ratio 195 07/30/20 23:55: Urine Creatinine 162.00 07/31/20 08:00: WBC 17.5 H, RBC 3.64 L, Hgb 11.6 L, Hct 38.9, MCV 106.9 H, MCH 31.9, MCHC 29.8 L, RDW Std Deviation 60.4 H, RDW Coeff of Luis 15.3 H, Plt Count 255, MPV 14.5 H, Immature Gran % (Auto) 0.800, Neut % (Auto) 83.7 H, Lymph % (Auto) 9.5 L, [place] % (Auto) 5.9, Eos % (Auto) 0.0, Baso % (Auto) 0.1, Absolute Neuts (auto) 14.7 H, Absolute Lymphs (auto) 1.67, Nucleated RBC % 0.1, Platelet Estimate ADEQUATE, RBC Morphology NORM C+C 07/31/20 08:00: Sodium 167 H*, Potassium 3.6, Chloride 138 H*, Carbon Dioxide 22.0, Anion Gap 7, BUN 91 H, Creatinine 3.82 H, Estim Creat Clear Calc 10.45, Est GFR (MDRD) Af Amer 15 L, Est GFR (MDRD) Non-Af 12 L, BUN/Creatinine Ratio 23.8 H, Glucose 116 H, Calcium 7.7 L, Total Bilirubin 0.40, AST 37, ALT 52, Alkaline Phosphatase 181 H, Total Protein 6.7, Albumin 2.1 L, Globulin 4.6 H, Albumin/Globulin Ratio 0.5 L, TSH 0.79 Current Medications Acetaminophen (Acetaminophen 325 Mg Tablet) 650 mg PO Q6H PRN PRN PRN Reason: Pain Score 1-10/Temp > 100.7 F Albuterol Sulfate (Albuterol Sulfate 8 Gm Inhaler (60 Puffs)) 2.5 puff INHALATION Q2H PRN PRN PRN Reason: Shortness of Breath/Wheezing Dexamethasone Sodium Phosphate (Dexamethasone 10 Mg/Ml Vial) 6 mg IV DAILY [facility] Last Admin: 07/31/20 09:35 Dose: 6 mg Documented by: Heparin Sodium (Porcine) (Heparin Injection (Vial) 5,000 Unit/Ml Vial) 5,000 unit SC Q8 [facility] Last Admin: 07/31/20 15:15 Dose: 5,000 unit Documented by: Ceftriaxone Sodium (Rocephin) 1 gm in 50 mls @ 100 mls/hr IV Q24 [facility] Last Infusion: 07/31/20 10:10 Dose: Infused Documented by: Dextrose () 1,000 mls @ 75 mls/hr IV .[id number] [facility] Stop: 08/01/20 17:09 Last Admin: 07/31/20 14:52 Dose: 75 mls/hr Documented by: Levothyroxine Sodium (Levothyroxine 25 Mcg Tablet) 25 mcg PO DAILY [facility] Last Admin: 07/31/20 09:35 Dose: Not Given Documented by: Mirtazapine (Mirtazapine 15 Mg Tablet) 15 mg PO QHS [facility] Last Admin: 07/30/20 20:38 Dose: Not Given Documented by: Morphine Sulfate (Morphine 2 Mg/Ml Syringe) 2 mg IV Q3H PRN PRN PRN Reason: Pain 1-10/SOB/restlessness Last Admin: 07/31/20 06:35 Dose: 2 mg Documented by: Nitroglycerin (Nitroglycerin (Inpatient Use) 0.4 Mg Tab.Subl) 0.4 mg SUBLINGUAL Q5M PRN PRN Reason: CARDIAC/CHEST PAIN Prochlorperazine Edisylate (Prochlorperazine 10 Mg/2 Ml Vial) 5 mg IV Q4H PRN PRN PRN Reason: Breakthrough nausea/vomiting Last Admin: 07/31/20 06:36 Dose: 5 mg Documented by: Promethazine HCl (Promethazine 25 Mg/Ml Syringe) 6.25 mg IV Q6H PRN PRN PRN Reason: AGITATION Senna/Docusate Sodium (Senna/Docusate Sodium 1 Tablet) 2 tablet PO BID PRN PRN PRN Reason: Constipation Sodium Chloride (0.9% Saline Lock 10 Ml Syringe) 10 - 40 ml IV UD PRN PRN Reason: SALINE FLUSH Last Admin: 07/31/20 09:37 Dose: 10 ml Documented by: Medical Necessity - Tobacco Use Smoking Status: Unknown if ever smoked Route of nutrition/ use of supplements: [] Nutritional Intake: [] IV Site: [] Bond Catheter: [] - Assessment/Plan Antibiotics: [] Assessment/Plan: [] Active and Suspected Problems Encephalopathy acute (Acute) Hypernatremia (Acute) Uremia (Acute) Dehydration (Acute) Acute renal failure (Acute) Altered mental status (Acute) Acute UTI (Acute) Acute systolic CHF (congestive heart failure) (Acute) JERRY (acute kidney injury) (Acute) Acute respiratory failure with hypoxia (Acute) Community acquired pneumonia (Acute) Pt made DNR CC, will follow as needed, d/w nursing and family.
--- NOTE | 2020-07-31 16:30 | PCM.DC.SUM ---
Discharge Date and Diagnosis - Problem List Patient Problems: Active and Suspected Problems Encephalopathy acute (Acute) Hypernatremia (Acute) Uremia (Acute) Dehydration (Acute) Acute renal failure (Acute) Altered mental status (Acute) Acute UTI (Acute) Acute systolic CHF (congestive heart failure) (Acute) JERRY (acute kidney injury) (Acute) Acute respiratory failure with hypoxia (Acute) Community acquired pneumonia (Acute) Date of Admission: 07/30/20 Date of Discharge: 07/31/20 - Primary Discharge Diagnosis Acute Problems: Active Problems Encephalopathy acute (Acute) Hypernatremia (Acute) Uremia (Acute) Dehydration (Acute) Acute renal failure (Acute) Altered mental status (Acute) Acute UTI (Acute) Acute systolic CHF (congestive heart failure) (Acute) JERRY (acute kidney injury) (Acute) Acute respiratory failure with hypoxia (Acute) Community acquired pneumonia (Acute) - Secondary Discharge Diagnosis Chronic Problems: Chronic Problems Urinary incontinence (Chronic) Dementia (Chronic) Oropharyngeal and pharyngeal dysphasia (Chronic) Chronic kidney disease (Chronic) STAGE 3 Non-ischemic cardiomyopathy (Chronic) EF 10-15% Benign essential hypertension (Chronic) Depression (Chronic) GERD (gastroesophageal reflux disease) (Chronic) COPD (chronic obstructive pulmonary disease) (Chronic) Chronic renal insufficiency (Chronic) stage 2 Anxiety (Chronic) Cerebrovascular disease (Chronic) 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 Chest x-ray was reviewed and shows focal area of infiltration mainly peripherally in lower lungs. EKG sinus rhythm at 72 bpm. QTC 470 ms. Labs done in the ER is consistent with JERRY with uremia, hypernatremia, hyperchloremia, lactic acidosis and leukocytosis with lymphopenia. On 07/30 evening, family agreed for DNRCC and palliative care consult. 1. Acute kidney injury predominantly prerenal with CKD stage III along with severe hypernatremia and hyperkalemia: Current BUN/creatinine is 108/5.28. Her last creatinine was 1.24 on May 2020. Patient had 1 L of normal saline bolus in ER. We will continue 1 more liter of normal saline bolus and then 150 mill per hour. Monitor intake and output. Patient has Bond catheter which was dark yellow-colored urine. The discussed with the [facility] patient financial rep Dr. Kim. Agreed on changing the IV fluid D5W at 75 mill per hour for 2 L. Monitor intake and output. Patient had total 150 mill urine output since admission, positive fluid balance of about 6.5 L. BUN/creatinine improved but sodium and chloride are high. Urine culture shows no growth. Discontinue ceftriaxone. Kidneys and bladder ultrasound was discontinued as patient family agreed for hospice care and is not going to record changer assembler, futile order. I talked to the palliative director of critical care, Dr. Patel and we explained the clinical information. He agreed the patient is hospice appropriate in view of JERRY with anuria, chronic severe systolic heart failure and other multiple comorbidities 2. Recent E coli UTI: It is hard to get history regarding urinary tract symptoms as patient is confused. Urine culture from 07/26 shows E. coli and gram-negative mary sensitive to ceftriaxone. Treated. Repeat urine culture shows no growth. 3. COVID-19 pneumonia: Chest x-ray is typical of peripheral infiltration, viral pneumonia. ID consult and discussed with Dr. Malloy advised Decadron 6 mg daily. Remdesivir is contraindicated because of acute kidney injury and patient is out of time window of convalescent plasma. 4. Acute encephalopathy, multifactorial mainly metabolic from uremia/acute kidney, possible infectious from UTI and COVID-19 with history of vascular dementia: Orientation cues. We will keep the n.p.o. until patient is awake. Haldol low-dose as needed for severe agitation. Patient also has a history of dysphagia with silent aspiration. Haldol was discontinued. 5. COPD 6. Paroxysmal atrial fibrillation: On Xarelto. Hold Xarelto as creatinine clearance is less than 10 mL/min 7. Severe chronic systolic heart failure with ischemic cardiomyopathy, moderate coronary artery disease: EF 10 to 15% with severe focal hypokinesis, mildly dilated LV and mild MR last echo in September 2016. Last echo in October 2016 reported as EF 20 to 25%, nonobstructive coronary artery disease of LAD and RCA. Hold Lasix, Coreg, losartan as patient has JERRY with hypotension. 07/31: Repeat chest x-ray not officially reported but independently reviewed. Shows hilar congestion with mild patchy consolidation, suboptimal history. Not a candidate for Lasix because of JERRY and hypernatremia. 8. Other multiple comorbidities include hypothyroidism, GERD, anxiety and depression, chronic debility with low functional capacity [facility] resident. PT and OT. The final CODE STATUS changed to DNR CC hospice care. Patient accepted by hospice care. Patient Problems: Active and Suspected Problems Encephalopathy acute (Acute) Hypernatremia (Acute) Uremia (Acute) Dehydration (Acute) Acute renal failure (Acute) Altered mental status (Acute) Acute UTI (Acute) Acute systolic CHF (congestive heart failure) (Acute) JERRY (acute kidney injury) (Acute) Acute respiratory failure with hypoxia (Acute) Community acquired pneumonia (Acute) Objective: Please see progress note for the same date for physical exam findings. - Physical Exam Vitals/I&O's: Vital Signs Temp Pulse Resp BP Pulse Ox 98.6 F 68 16 123/81 H 97 07/31/20 14:35 07/31/20 15:50 07/31/20 14:35 07/31/20 14:35 07/31/20 14:35 Oxygen Flow Rate (L/min) 2 Oxygen Delivery Method Nasal Cannula Weight: 177 lb 0.005 oz Body Mass Index (BMI) 28.4 Intake and Output for Last 24 Hours 07/29/20 07/30/20 07/31/20 23:59 23:59 23:59 Intake Total 5252.5 / 5252.5 1698.75 / 1698.75 Output Total 105 / 105 325 / 325 Balance 5147.5 / 5147.5 1373.75 / 1373.75 Microbiology Past 72 Hours 07/30/20 12:24 Urine, Catheterized Urine Culture - Preliminary Culture exhibits no growth. 07/30/20 12:24 Urine, Random Legionella Antigen - Final 07/30/20 12:24 Urine, Random Streptococcus pneumoniae Antigen (M - Final Laboratory Results 07/30/20 09:42: Diff Path Review Reviewed 07/30/20 12:24: Urine Color Cancelled, Urine Clarity Cancelled, Urine pH Cancelled, Ur Specific [place] Cancelled, U Specif Grav (Refrac) Cancelled, Urine Protein Cancelled, Urine Glucose (UA) Cancelled, Urine Ketones Cancelled, Urine Occult Blood Cancelled, Urine Nitrite Cancelled, Urine Bilirubin Cancelled, Urine Urobilinogen Cancelled, Ur Leukocyte Esterase Cancelled, Urine RBC Cancelled, Urine WBC Cancelled, Ur Squamous Epith Cells Cancelled, Ur Transition Epith Cell Cancelled, Ur Renal Epithelial Cell Cancelled, Calcium Oxalate Crystal Cancelled, Uric Acid Crystals Cancelled, Triple Phos Crystals Cancelled, Other Crystals Cancelled, Amorphous Sediment Cancelled, Urine Bacteria Cancelled, Hyaline Casts Cancelled, Fine Granular Casts Cancelled, Coarse Granular Casts Cancelled, Waxy Casts Cancelled, RBC Casts Cancelled, WBC Casts Cancelled, Urine Mucus Cancelled, Urine Trichomonas Cancelled, Urine Yeast Cancelled 07/30/20 12:24: U Random Total Protein 73.8 H, Ur Random Sodium 15, Urine Creatinine 378.00, Protein/Creatinin Ratio 195 07/30/20 23:55: Urine Creatinine 162.00 07/31/20 08:00: WBC 17.5 H, RBC 3.64 L, Hgb 11.6 L, Hct 38.9, MCV 106.9 H, MCH 31.9, MCHC 29.8 L, RDW Std Deviation 60.4 H, RDW Coeff of Luis 15.3 H, Plt Count 255, MPV 14.5 H, Immature Gran % (Auto) 0.800, Neut % (Auto) 83.7 H, Lymph % (Auto) 9.5 L, Pierce % (Auto) 5.9, Eos % (Auto) 0.0, Baso % (Auto) 0.1, Absolute Neuts (auto) 14.7 H, Absolute Lymphs (auto) 1.67, Nucleated RBC % 0.1, Platelet Estimate ADEQUATE, RBC Morphology NORM C+C 07/31/20 08:00: Sodium 167 H*, Potassium 3.6, Chloride 138 H*, Carbon Dioxide 22.0, Anion Gap 7, BUN 91 H, Creatinine 3.82 H, Estim Creat Clear Calc 10.45, Est GFR (MDRD) Af Amer 15 L, Est GFR (MDRD) Non-Af 12 L, BUN/Creatinine Ratio 23.8 H, Glucose 116 H, Calcium 7.7 L, Total Bilirubin 0.40, AST 37, ALT 52, Alkaline Phosphatase 181 H, Total Protein 6.7, Albumin 2.1 L, Globulin 4.6 H, Albumin/Globulin Ratio 0.5 L, TSH 0.79 Current Medications Acetaminophen (Acetaminophen 325 Mg Tablet) 650 mg PO Q6H PRN PRN PRN Reason: Pain Score 1-10/Temp > 100.7 F Albuterol Sulfate (Albuterol Sulfate 8 Gm Inhaler (60 Puffs)) 2.5 puff INHALATION Q2H PRN PRN PRN Reason: Shortness of Breath/Wheezing Dexamethasone Sodium Phosphate (Dexamethasone 10 Mg/Ml Vial) 6 mg IV DAILY [facility] Last Admin: 07/31/20 09:35 Dose: 6 mg Documented by: Heparin Sodium (Porcine) (Heparin Injection (Vial) 5,000 Unit/Ml Vial) 5,000 unit SC Q8 [facility] Last Admin: 07/31/20 15:15 Dose: 5,000 unit Documented by: Dextrose () 1,000 mls @ 75 mls/hr IV .[id number] [facility] Stop: 08/01/20 17:09 Last Admin: 07/31/20 14:52 Dose: 75 mls/hr Documented by: Levothyroxine Sodium (Levothyroxine 25 Mcg Tablet) 25 mcg PO DAILY [facility] Last Admin: 07/31/20 09:35 Dose: Not Given Documented by: Mirtazapine (Mirtazapine 15 Mg Tablet) 15 mg PO QHS [facility] Last Admin: 07/30/20 20:38 Dose: Not Given Documented by: Morphine Sulfate (Morphine 2 Mg/Ml Syringe) 2 mg IV Q3H PRN PRN PRN Reason: Pain 1-10/SOB/restlessness Last Admin: 07/31/20 06:35 Dose: 2 mg Documented by: Nitroglycerin (Nitroglycerin (Inpatient Use) 0.4 Mg Tab.Subl) 0.4 mg SUBLINGUAL Q5M PRN PRN Reason: CARDIAC/CHEST PAIN Prochlorperazine Edisylate (Prochlorperazine 10 Mg/2 Ml Vial) 5 mg IV Q4H PRN PRN PRN Reason: Breakthrough nausea/vomiting Last Admin: 07/31/20 06:36 Dose: 5 mg Documented by: Promethazine HCl (Promethazine 25 Mg/Ml Syringe) 6.25 mg IV Q6H PRN PRN PRN Reason: AGITATION Senna/Docusate Sodium (Senna/Docusate Sodium 1 Tablet) 2 tablet PO BID PRN PRN PRN Reason: Constipation Sodium Chloride (0.9% Saline Lock 10 Ml Syringe) 10 - 40 ml IV UD PRN PRN Reason: SALINE FLUSH Last Admin: 07/31/20 09:37 Dose: 10 ml Documented by: Home Medications: Medications to take at Discharge RX: Losartan Potassium [Cozaar] 50 mg PO DAILY 05/15/15 RX: Levothyroxine [Synthroid] 25 mcg PO DAILY 06/27/15 RX: Ondansetron [Zofran Odt] 8 mg PO Q8H PRN PRN #6 06/27/15 RX: Carvedilol [Coreg (Beta Angélica)] 12.5 mg PO BID tablet 10/18/16 RX: Docusate Sodium [Colace] 100 mg PO BID capsule 10/18/16 RX: Furosemide [Lasix] 40 mg PO DAILY tablet 10/18/16 RX: Bisacodyl [Dulcolax] 5 mg PO DAILY PRN PRN 12/16/16 RX: Ensure Enlive 120 ml PO 4X/DAY liquid 12/18/16 Acetaminophen [Tylenol] 650 mg PO TID 08/26/19 Rivaroxaban [Xarelto] 15 mg PO QHS 08/26/19 Umeclidinium Brm/Vilanterol Tr [Anoro Ellipta 62.5-25 Mcg INH] 1 puff INHALATION DAILY 08/26/19 Vits A,C,E/Lutein/Minerals [Ocuvite with Lutein Tablet] 1 ea PO DAILY 08/26/19 Ceftriaxone Sodium [Ceftriaxone] 1 gm IM DAILY 07/30/20 Mirtazapine [Remeron] 15 mg PO QHS 07/30/20 Primary Care Physician: Austin Lares MD [Primary Care Provider] - Medical Necessity - Tobacco Use Smoking Status: Unknown if ever smoked Meaningful Use Info Meaningful Use Diagnoses (Choose all that apply): None applicable Please cancel the billing charge of progress note on the same date. Inpatient E&M: [id number] Disch Hosp
--- NOTE | 2020-07-31 17:10 | CASEMGMT ---
Social Work DELONTE spoke with Ese from [employer] and informed that physician is requesting [facility] evaluation. Dr. Patel's phone number provided for physician to physician and DELONTE passed info to Dr. Camara. Ese called back and pt is accepted to [facility]. Nursing notified that pt can transfer to [facility] and family is aware per Hospice. Nursing to set up transportation. CHATA left with Nichole at [place]. JOSE Alicea
--- NOTE | 2020-07-31 17:40 | NURSING ---
report called to Jailyn at [facility].
== END 2020-07-31 18:34 | disposition hospice, inpatient (51) | DRG 682 ==
LOC: ED 11:14 → MS2 12:46
PROVIDERS: Admitting Provider Internal Medicine; Emergency Provider Emergency Medicine; PCP Family Medicine; Visit Provider Internal Medicine
DX: N17.9 Acute kidney failure, unspecified (principal); U07.1 COVID-19; J12.89 Other viral pneumonia; G93.41 Metabolic encephalopathy; I50.23 Acute on chronic systolic (congestive) heart failure; I13.0 Hypertensive heart and chronic kidney disease with heart failure and stage 1 through stage 4 chronic kidney disease, or unspecified chronic kidney disease; E87.0 Hyperosmolality and hypernatremia; J44.0 Chronic obstructive pulmonary disease with (acute) lower respiratory infection; N39.0 Urinary tract infection, site not specified; N18.30 Chronic kidney disease, stage 3 unspecified; E87.5 Hyperkalemia; F01.50 Vascular dementia, unspecified severity, without behavioral disturbance, psychotic disturbance, mood disturbance, and anxiety; I48.0 Paroxysmal atrial fibrillation; Z79.02 Long term (current) use of antithrombotics/antiplatelets; I25.5 Ischemic cardiomyopathy; I25.10 Atherosclerotic heart disease of native coronary artery without angina pectoris; K21.9 Gastro-esophageal reflux disease without esophagitis; F32.9 Major depressive disorder, single episode, unspecified; F41.9 Anxiety disorder, unspecified; E03.9 Hypothyroidism, unspecified; R53.81 Other malaise; Z66 Do not resuscitate; Z79.899 Other long term (current) drug therapy; B96.20 Unspecified Escherichia coli [E. coli] as the cause of diseases classified elsewhere; R13.10 Dysphagia, unspecified; E86.0 Dehydration
CPT/HCPCS: 36415; 71045; 80053; 81001; 82550; 82570; 83605; 83735; 83880; 84145; 84156; 84300; 84443; 84484; 85025; 85379; 85384; 85610; 85730; 86140; 87040; 87086; 87449; 93005; 99285; J7030; A4216